=== PATIENT | male | born 1980 | race Caucasian/White ===

== ENCOUNTER 2018-11-25 14:27 | Inpatient (IN) | payer SELFPAY ==
[~2018-11-25] VITALS: Ht 182.9 cm; Wt 94.3 kg
[2018-11-25 15:42] VITALS: BP 147/50; BMI 28.2
[2018-11-25 16:44] LABS: % SATURATION 1 % (15-55); IRON 8 ug/dl (35-150); TOTAL IRON BIND CAPACITY 604 ug/dl (260-445)
[2018-11-25 16:45] LABS: ALBUMIN 3.6 g/dL (3.4-5.0); ALKALINE PHOSPHATASE 81 U/L (46-116); ALT (SGPT) 17 U/L (10-68); BILIRUBIN - TOTAL 0.32 mg/dL (0.2-1.3); CALC OSMOLALITY 279 mosm/kg (275-300); CALCIUM 8.2 mg/dL (8.5-10.1); CARBON DIOXIDE 25.8 mmol/L (21.0-32.0); CHLORIDE - SERUM 104 mmol/L (98-107); GLUCOSE 129 mg/dL (74-106); POTASSIUM - SERUM 3.4 mmol/L (3.5-5.1); PROTEIN - SERUM 7.4 g/dL (6.4-8.2); SODIUM 140 mmol/L (136-145); UREA NITROGEN 11 mg/dL (7-18); eGFR NON AFRICAN AMERICAN 89 mL/min (90-120)
[2018-11-25 16:48] LABS: UNSAT IRON BIND CAPACITY 596 ug/dl (150-375)
[2018-11-25 17:02] LABS: FERRITIN 2 ng/mL (3-244)
[2018-11-25 19:32] LABS: APPEARANCE CLEAR (CLEAR); BILIRUBIN NEGATIVE (NEGATIVE); COLOR YELLOW (YELLOW); GLUCOSE NEGATIVE (NEGATIVE); KETONE NEGATIVE (NEGATIVE); NITRITE NEGATIVE (NEGATIVE); PROTEIN NEGATIVE (NEGATIVE); UROBILINOGEN NORMAL (NORMAL)
[2018-11-25 20:00] VITALS: BP 119/47
[2018-11-25 23:51] LABS: HEMATOCRIT 22.1 % (42.0-54.0)
[2018-11-25 23:53] LABS: HEMOGLOBIN 6.3 g/dL (13.5-17.5)
[2018-11-26] VITALS: BP 114/69
[2018-11-26 04:00] VITALS: BP 119/64
[2018-11-26 07:22] LABS: FOLATE (FOLIC ACID) - SERUM 17.4 ng/mL (>3.0)
[2018-11-26 08:17] LABS: CALC OSMOLALITY 282 mosm/kg (275-300); CARBON DIOXIDE 26.6 mmol/L (21.0-32.0); CHLORIDE - SERUM 108 mmol/L (98-107); CREATININE - SERUM 1.1 mg/dL (0.6-1.3); GLUCOSE 110 mg/dL (74-106); POTASSIUM - SERUM 3.9 mmol/L (3.5-5.1); SODIUM 142 mmol/L (136-145); UREA NITROGEN 11 mg/dL (7-18); eGFR NON AFRICAN AMERICAN 79 mL/min (90-120)
[2018-11-26 08:24] LABS: BASOPHILS 1.2 % (0-2); EOSINOPHILS 2.2 % (0-7); HEMATOCRIT 25.4 % (42.0-54.0); IMMATURE GRANULOCYTES 0.5 % (0-5); LYMPHOCYTES 24.1 % (15-50); MCHC 29.1 g/dL (31.0-37.0); MEAN PLATELET VOLUME 9.7 fL (7.4-10.4); MONOCYTES 12.4 % (2-11); NEUTROPHILS 59.6 % (40-80); PLATELET COUNT 340 10x3/uL (130-400); RDW 23.2 % (11.5-14.5); WBC 8.1 10x3/uL (4.8-10.8)
[2018-11-26 08:25] LABS: RBC 3.96 10x6/uL (4.20-6.10)
[2018-11-26 08:27] LABS: HEMOGLOBIN 7.4 g/dL (13.5-17.5); MCH 18.7 pg (26.0-34.0); MCV 64.1 fL (80.0-100.0)
[2018-11-26 08:58] VITALS: Ht 182.9 cm; Wt 94.3 kg
[2018-11-26 09:21] VITALS: BP 128/63
[2018-11-26 11:35] VITALS: BP 128/71
[2018-11-26 12:20] LABS: EOSINOPHILS 1.7 % (0-7); HEMATOCRIT 28.1 % (42.0-54.0); HEMOGLOBIN 8.4 g/dL (13.5-17.5); IMMATURE GRANULOCYTES 0.4 % (0-5); MCHC 29.9 g/dL (31.0-37.0); MEAN PLATELET VOLUME 9.5 fL (7.4-10.4); MONOCYTES 9.5 % (2-11); NEUTROPHILS 62.4 % (40-80); PLATELET COUNT 340 10x3/uL (130-400); RBC 4.26 10x6/uL (4.20-6.10); RDW 24.9 % (11.5-14.5); WBC 7.7 10x3/uL (4.8-10.8)
[2018-11-26 12:21] LABS: MCH 19.7 pg (26.0-34.0)
[2018-11-26 15:53] VITALS: BP 144/78
[2018-11-26 20:11] LABS: HEMATOCRIT 28.6 % (42.0-54.0); HEMOGLOBIN 8.7 g/dL (13.5-17.5)
[2018-11-26 20:46] VITALS: BP 123/66
[2018-11-27 00:35] VITALS: BP 129/74
[2018-11-27 05:08] VITALS: BP 126/62
[2018-11-27 06:33] LABS: EOSINOPHILS 4.9 % (0-7); HEMATOCRIT 29.1 % (42.0-54.0); HEMOGLOBIN 8.5 g/dL (13.5-17.5); IMMATURE GRANULOCYTES 0.4 % (0-5); MCHC 29.2 g/dL (31.0-37.0); MCV 66.9 fL (80.0-100.0); MEAN PLATELET VOLUME 9.7 fL (7.4-10.4); MONOCYTES 10.3 % (2-11); NEUTROPHILS 51.4 % (40-80); PLATELET COUNT 344 10x3/uL (130-400); RBC 4.35 10x6/uL (4.20-6.10)
[2018-11-27 06:37] LABS: MCH 19.5 pg (26.0-34.0)
[2018-11-27 06:38] LABS: CALC OSMOLALITY 279 mosm/kg (275-300); CALCIUM 8.4 mg/dL (8.5-10.1); CARBON DIOXIDE 25.5 mmol/L (21.0-32.0); CHLORIDE - SERUM 107 mmol/L (98-107); GLUCOSE 102 mg/dL (74-106); POTASSIUM - SERUM 4.3 mmol/L (3.5-5.1); SODIUM 141 mmol/L (136-145); UREA NITROGEN 10 mg/dL (7-18); eGFR NON AFRICAN AMERICAN 89 mL/min (90-120)
[2018-11-27 06:52] LABS: INR 1.24 (0.85-1.17); PROTIME 15.1 SECONDS (11.6-15.0)
[2018-11-27 08:11] VITALS: BP 126/82
[2018-11-27 12:09] VITALS: BP 113/61
[2018-11-27 14:00] VITALS: BP 123/75
[2018-11-27 14:22] LABS: HEMATOCRIT 28.5 % (42.0-54.0); HEMOGLOBIN 8.4 g/dL (13.5-17.5)
[2018-11-27 20:47] VITALS: BP 127/78
[2018-11-27 22:49] LABS: HEMATOCRIT 28.1 % (42.0-54.0); HEMOGLOBIN 8.2 g/dL (13.5-17.5)
[2018-11-28 00:52] VITALS: BP 125/78
[2018-11-28 05:08] VITALS: BP 120/72
[2018-11-28 07:03] LABS: CALC OSMOLALITY 281 mosm/kg (275-300); CALCIUM 8.6 mg/dL (8.5-10.1); CARBON DIOXIDE 25.9 mmol/L (21.0-32.0); CHLORIDE - SERUM 106 mmol/L (98-107); GLUCOSE 98 mg/dL (74-106); POTASSIUM - SERUM 4.1 mmol/L (3.5-5.1); SODIUM 142 mmol/L (136-145); UREA NITROGEN 11 mg/dL (7-18); eGFR NON AFRICAN AMERICAN 89 mL/min (90-120)
[2018-11-28 07:07] LABS: BASOPHILS 0.7 % (0-2); EOSINOPHILS 4.7 % (0-7); HEMATOCRIT 29.2 % (42.0-54.0); HEMOGLOBIN 8.7 g/dL (13.5-17.5); IMMATURE GRANULOCYTES 0.4 % (0-5); MCHC 29.8 g/dL (31.0-37.0); MCV 66.7 fL (80.0-100.0); MEAN PLATELET VOLUME 10.1 fL (7.4-10.4); MONOCYTES 9.9 % (2-11); NEUTROPHILS 55.3 % (40-80); PLATELET COUNT 346 10x3/uL (130-400); RBC 4.38 10x6/uL (4.20-6.10); RDW 26.2 % (11.5-14.5); WBC 7.2 10x3/uL (4.8-10.8)
[2018-11-28 07:10] LABS: MCH 19.9 pg (26.0-34.0)
[2018-11-28] MEDS ORDERED: PROTONIX PO (10:22)
== END 2018-11-28 11:26 | disposition home or self-care (01) | DRG 394 ==
LOC: D.M3 14:27
PROVIDERS: Internal Medicine Gastroenterology; ADMIT Legal Medicine; ATTEND Legal Medicine
PROC: 0DB68ZX Excision of Stomach, Via Natural or Artificial Opening Endoscopic, Diagnostic (ICD-10-PCS; 2018-11-27)
PROC: 0DB58ZX Excision of Esophagus, Via Natural or Artificial Opening Endoscopic, Diagnostic (ICD-10-PCS; 2018-11-27)
PROC: 0DB98ZX Excision of Duodenum, Via Natural or Artificial Opening Endoscopic, Diagnostic (ICD-10-PCS; principal; 2018-11-27 06:58)
PROC: 0DBN8ZX Excision of Sigmoid Colon, Via Natural or Artificial Opening Endoscopic, Diagnostic (ICD-10-PCS; 2018-11-28)
DX: K31.7 Polyp of stomach and duodenum (principal); K92.2 Gastrointestinal hemorrhage, unspecified; D50.9 Iron deficiency anemia, unspecified; K20.9 Esophagitis, unspecified; K29.70 Gastritis, unspecified, without bleeding; K29.80 Duodenitis without bleeding; K64.8 Other hemorrhoids; K63.9 Disease of intestine, unspecified

== ENCOUNTER → 2018-12-02 20:19 | Outpatient (CLI) | payer SELFPAY ==
[2018-11-26 08:58] VITALS: BMI 28.2
[~2018-12-02 20:19] MED LIST: PROTONIX PO
[2018-12-02 20:43] LABS: BASOPHILS 0.7 % (0-2); EOSINOPHILS 1.9 % (0-7); IMMATURE GRANULOCYTES 0.1 % (0-5); LYMPHOCYTES 20.7 % (15-50); MCV 68.7 fL (80.0-100.0); MONOCYTES 7.8 % (2-11); NEUTROPHILS 68.8 % (40-80); PLATELET COUNT 324 10x3/uL (130-400); RBC 4.51 10x6/uL (4.20-6.10); RDW 27.3 % (11.5-14.5); WBC 8.1 10x3/uL (4.8-10.8)
== END | disposition home or self-care (01) ==
LOC: D.LABREF 20:19
DX: K92.2 Gastrointestinal hemorrhage, unspecified (principal); D64.89 Other specified anemias

== ENCOUNTER 2018-12-09 15:10 | Inpatient (IN) | payer SELFPAY ==
[~2018-12-09] VITALS: Ht 182.9 cm; Wt 93.9 kg
[2018-12-15 13:19] LABS: EOSINOPHILS 2.5 % (0-7); HEMATOCRIT 29.2 % (42.0-54.0); HEMOGLOBIN 8.5 g/dL (13.5-17.5); IMMATURE GRANULOCYTES 0.2 % (0-5); LYMPHOCYTES 36.9 % (15-50); MCHC 29.1 g/dL (31.0-37.0); MCV 68.1 fL (80.0-100.0); MEAN PLATELET VOLUME 9.5 fL (7.4-10.4); NEUTROPHILS 50.4 % (40-80); RBC 4.29 10x6/uL (4.20-6.10); RDW 25.2 % (11.5-14.5)
[2018-12-15 13:20] LABS: MCH 19.8 pg (26.0-34.0); PLATELET COUNT 454 10x3/uL (130-400)
[2018-12-15 13:24] LABS: CALC OSMOLALITY 278 mosm/kg (275-300); CALCIUM 8.5 mg/dL (8.5-10.1); CARBON DIOXIDE 24.4 mmol/L (21.0-32.0); CHLORIDE - SERUM 106 mmol/L (98-107); GLUCOSE 96 mg/dL (74-106); POTASSIUM - SERUM 4.5 mmol/L (3.5-5.1); SODIUM 141 mmol/L (136-145); UREA NITROGEN 8 mg/dL (7-18); eGFR NON AFRICAN AMERICAN 89 mL/min (90-120)
[2018-12-15 13:28] LABS: APTT 25.2 SECONDS (22.8-39.4); INR 1.12 (0.85-1.17); PROTIME 13.9 SECONDS (11.6-15.0)
[2018-12-16 08:51] VITALS: BP 119/70; BMI 28.1
[2018-12-16 12:48] VITALS: BP 123/64
--- NOTE | 2018-12-16 13:00 | NUR ---
TO ROOM 2219 FROM PACU VIA BED. PT IS AWAKE AND WITHOUT DISTRESS.DRESSING TO LOWER MID ABD CLEAN,DRY AND INTACT. LAP SITES X2 TO RLQ OF ABD CLEAN,DRY AND INTACT.SCD'S IN PLACE. FAMILY AT BEDSIDE.ORIENTATION TO ROOM.CALL LIGHT IN REACH
[2018-12-16 13:06] VITALS: BP 123/64; BMI 28.1
--- NOTE | 2018-12-16 19:22 | NUR ---
REMAINS WITHOUT CHANGE.CONT PLAN OF CARE
--- NOTE | 2018-12-16 20:00 | NUR ---
ASSESSMENT PER FLOWSHEET. NPO EXCEPT FOR ICE CHIPS. IV PATENT LEFT ARM OF NS AT 125CC'S/HR. PYROMETER OPERATOR OF DILAUDID IN USE WITH SETTINGS AT 0.2MG Q10MIN W/4MG Q4H L/O. GOOD PAIN CONTROL NOTED.SCOTT TO BEDSIDE DRAINAGE WITH YELLOW URINE NOTED.
[2018-12-16 20:41] VITALS: BP 123/66
--- NOTE | 2018-12-16 21:00 | NUR ---
LAP SITE INCISION TO ABDOMEN C/D/I. SCD'S ON. SR UP X2 CALL LIGHT WITHIN REACH.
[2018-12-17 00:57] VITALS: BP 118/60
[2018-12-17 05:54] VITALS: BP 113/56
[2018-12-17 06:09] LABS: BASOPHILS 0.3 % (0-2); EOSINOPHILS 0.1 % (0-7); HEMATOCRIT 25.7 % (42.0-54.0); IMMATURE GRANULOCYTES 0.2 % (0-5); LYMPHOCYTES 13.8 % (15-50); MCHC 29.2 g/dL (31.0-37.0); MCV 67.8 fL (80.0-100.0); MEAN PLATELET VOLUME 9.2 fL (7.4-10.4); MONOCYTES 8.4 % (2-11); NEUTROPHILS 77.2 % (40-80); PLATELET COUNT 415 10x3/uL (130-400); RBC 3.79 10x6/uL (4.20-6.10); RDW 24.8 % (11.5-14.5)
[2018-12-17 06:27] LABS: MCH 19.8 pg (26.0-34.0); WBC 10.5 10x3/uL (4.8-10.8)
[2018-12-17 06:28] LABS: HEMOGLOBIN 7.5 g/dL (13.5-17.5)
[2018-12-17 06:32] LABS: CALC OSMOLALITY 272 mosm/kg (275-300); CALCIUM 8.3 mg/dL (8.5-10.1); CARBON DIOXIDE 23.2 mmol/L (21.0-32.0); CHLORIDE - SERUM 104 mmol/L (98-107); CREATININE - SERUM 0.9 mg/dL (0.6-1.3); GLUCOSE 104 mg/dL (74-106); SODIUM 137 mmol/L (136-145); eGFR NON AFRICAN AMERICAN > 90 mL/min (90-120)
[2018-12-17 06:42] LABS: UREA NITROGEN 11 mg/dL (7-18)
--- NOTE | 2018-12-17 07:52 | NUR ---
PT RESTING IN BED WATCHING TV. NO ACUTE DISTRESS NOTED. PT REPORTS PAIN 3/10 AT THIS TIME TO INCISION TO ABDOMEN. DILAUDID TELERADIOLOGIST IN PLACE AND UTILIZING. IV TO LEFT FOREARM WITH NS @ 125ML/HR INFUSING VIA PUMP. SITE WITHOUT REDNESS OR EDEMA. DRESSINGS C/D/I TO LOWER MIDLINE ABDOMEN AND RLQ LAP SITES. DENIES FURTHER NEEDS AT THIS TIME. CL WITHIN REACH. ENCOURAGED TO CALL WITH NEEDS. CONTINUE POC
[2018-12-17 08:40] VITALS: BP 123/69
--- NOTE | 2018-12-17 09:30 | NUR ---
MD PRESENT, ORDERS RECIEVED TO D/C SCOTT CATH. 10ML SALINE REMOVED FROM BULB OF SCOTT CATH. CATH DISCONTINUED, PT VOICED MINIMAL DISCOMFORT.
[2018-12-17 12:03] VITALS: BP 136/74
[2018-12-17 13:25] VITALS: Ht 182.9 cm; Wt 93.9 kg
[2018-12-17 17:29] VITALS: BP 124/67
[2018-12-17 20:00] VITALS: BP 165/60
--- NOTE | 2018-12-17 20:00 | NUR ---
ASSESSSMENT PER FLOWSHEET. IV PATENT LEFT FOREARM NS AT 125CC'S/HR SITE CLEAR. ROBOTICS TESTING TECHNICIAN OF DILAUDID IN USE WITH SETTINGS AT 0.2MG Q10MIN W/4MG Q4H L/O. DRSG TO ABD. C/D/I. VOIDS IN BATHROOM. SCD'S ON TAKING ICE CHIPS PO.
--- NOTE | 2018-12-17 22:00 | NUR ---
MEDS GIVEN PER MAR. DENIES NEEDS TALKING ON PHONE AT THIS TIME.
[2018-12-18 00:30] VITALS: BP 128/71
--- NOTE | 2018-12-18 01:13 | NUR ---
EYES CLOSED RESPIRATIONS WITH EASE AND UNLABORED. SR UP X2 CALL LIGHT WITHIN REACH.
--- NOTE | 2018-12-18 04:00 | NUR ---
ROXANE DUMONT PER OCT. UP AD TAMIKO TO BR VOIDS
[2018-12-18 04:30] VITALS: BP 147/81
[2018-12-18 06:11] LABS: BASOPHILS 0.5 % (0-2); EOSINOPHILS 1.2 % (0-7); HEMATOCRIT 26.1 % (42.0-54.0); HEMOGLOBIN 7.6 g/dL (13.5-17.5); IMMATURE GRANULOCYTES 0.2 % (0-5); LYMPHOCYTES 20.4 % (15-50); MCH 20.1 pg (26.0-34.0); MCHC 29.1 g/dL (31.0-37.0); MEAN PLATELET VOLUME 9.1 fL (7.4-10.4); MONOCYTES 10.7 % (2-11); PLATELET COUNT 377 10x3/uL (130-400); RBC 3.78 10x6/uL (4.20-6.10); RDW 24.7 % (11.5-14.5); WBC 8.4 10x3/uL (4.8-10.8)
[2018-12-18 06:29] LABS: CALC OSMOLALITY 276 mosm/kg (275-300); CALCIUM 8.1 mg/dL (8.5-10.1); CARBON DIOXIDE 22.9 mmol/L (21.0-32.0); CHLORIDE - SERUM 106 mmol/L (98-107); CREATININE - SERUM 0.8 mg/dL (0.6-1.3); GLUCOSE 85 mg/dL (74-106); POTASSIUM - SERUM 3.8 mmol/L (3.5-5.1); SODIUM 140 mmol/L (136-145); UREA NITROGEN 10 mg/dL (7-18); eGFR NON AFRICAN AMERICAN > 90 mL/min (90-120)
[2018-12-18 09:14] VITALS: BP 126/74
--- NOTE | 2018-12-18 11:25 | NUR ---
MORNING ASSESSMENT COMPLETE. SEE ASSESSMENT FLOWSHEET FOR FURTHER DETAILS. PT LYING IN BED AAO X4 TO PERSON, PLACE, TIME, AND SITUATION. TOOK A SHOWER. REDRESSED INCISION WITH ABD PAD. INCISION C/D AND GISELLA INTACT. DENIES FURTHER NEEDS AT THIS TIME. CL IN REACH. SIDE RAILS UP X3 FOR PT SAFETY. BED IN LWOEST POSITION.
--- NOTE | 2018-12-18 14:34 | NUR ---
NUTRITION F/U DIET ADVANCED TO CLEAR LIQUID. PT REPORTS TOLERATING. WILL MONITOR DIET ADVANCEMENT, PO INTAKE. RD FOLLOWING
--- NOTE | 2018-12-18 15:58 | MORECARE ---
CASE MANAGEMENT DISCHARGE SUMMARY PATIENT: EDUIN MACHUCA UNIT: [id number] ADM DATE: 12/16/18 AGE: 38 : 80 SEX: M ROOM/BED: D.2219 AUTHOR: ZULEYMA,DOC PHYSICIAN: REFERRING PHYSICIAN: LUKE GAYLE MD DATE OF SERVICE: 12/18/18 Discharge Plan Patient Name: EDUIN MACHUCA Facility: [facility]:[place] : 1980 Planned Disposition: Home Anticipated Discharge Date: Discharge Date: Expected LOS: Initial Reviewer: [email or web address] Initial Review Date: 12/16/2018 Generated: 12/18/18 4:58 pm Comments DCP- Discharge Planning Updated by [email or web address]: Kathleen Fermin on 12/18/18 2:[address] Patient Name: EDUIN MACHUCA Admission Status: Urgent Accout number: [id number] Admission Date: 12-16-2018 : 1980 Admission Diagnosis: Attending: LUKE GAYLE Current LOS: 2 Anticipated DC Date: Planned Disposition: Home Primary Insurance: UNINSURED DISCOUNT PLAN Discharge Planning Comments: CM met with patient to complete initial dc planning assessment. CM educated patient on the CM role and verbal consent given by patient to complete assessment. Patient lives at home where he is independent with his care. At discharge patient plans to return home and feels this is a safe discharge. His son will be his carrier driver home. CM discussed availability of home health, rehab services, and medical equipment. Patient denied known discharge needs at this time. CM will continue to follow and will assist as needed with dc plans/needs. Staple Cutter: Kathleen Fermin DCPIA - Discharge Planning Initial Assessment Updated by [email or web address]: Kathleen Fermin on 12/18/18 3:52 pm * Is the patient Alert and Oriented? Yes * How many steps to enter\exit or inside your home? * PCP BHARANY * [facility]acy [facility] * Preadmission Environment Home with Family * ADLs Independent * Equipment None * List name and contact numbers for known caregivers / representatives who currently or will assist patient after discharge: DOT (MOTHER) [phone] * Verbal permission to speak to the caregivers and representatives has been obtained from the patient. N/A * Community resources currently utilized None * Additional services required to return to the preadmission environment? No * Can the patient safely return to the preadmission environment? Yes * Has this patient been hospitalized within the prior 30 days at any hospital? No Patient Name: EDUIN MACHUCA Page 23319 at 1558 All edits/amendments must be made on the electronic document DICTATION DATE: 12/18/181557 NEONATOLOGIST: MAO 12/18/181557 RPT#: [id number] DC DATE: STATUS: ADM IN [facility] [address] [place] [address] END OF REPORT
--- NOTE | 2018-12-18 16:09 | OP ---
PATIENT NAME: EDUIN MACHUCA MEDICAL RECORD: [id number] :[birth year] LOCATION:D.MS [address] ADMISSION DATE:12/16/18 SURGEON: BRADEN GAYLE MD DATE OF OPERATION: 12/16/2018 PREOPERATIVE DIAGNOSES: 1. Sigmoid colon mass. 2. GERD. POSTOPERATIVE DIAGNOSES: 1. Sigmoid colon mass. 2. GERD. PROCEDURE: Hand-assisted laparoscopic sigmoid colectomy. SURGEON: Braden Gayle MD REPORT OF PROCEDURE: The patient's abdomen was prepped and draped in sterile fashion. A suprapubic incision was made in the midline. Electrocautery was used to dissect through the subcutaneous tissues and fascia until we bluntly entered the abdominal cavity. A GelPort was then inserted with a 5-mm trocar within it. After insufflation was obtained, a 5-mm trocar was placed in the right lateral abdomen and a 12-mm trocar was placed just anterior to the right anterior superior iliac crest. The patient had a large palpable mass in the sigmoid colon concerning for malignancy, did not appear to be attached to any surrounding structures. A window was made in the mesorectum at the proximal rectum and the proximal rectum was transected with a 60 blue load Endo-ROBERT stapler. The mesentery was then taken down and we freed up the attachments of the colon from its inferior ridge in the lateral margins. Once this was done, we fired a 70 blue load ROBERT stapler over the mesentery and then eviscerated the sigmoid colon through the wound protector. The mesentery was taken down with sequential clamp and tie technique with 3-0 silks. We then transected the proximal aspect of the sigmoid colon and sent the sigmoid colon off for permanent specimen. The distal end of the colon was prepared with a 2-0 Prolene as a pursestring and a 33 EEA anvil was inserted. The pursestring was tied down tightly around this and this was rested back into the abdominal cavity. The multiple anal dilators were inserted followed by the 33 EEA stapler. An end-to-end anastomosis was performed under direct visualization. At the conclusion of this, there were 2 complete rings of tissue present in the stapler. The staple line was then tested under water by instilling air through the rectum and there was no sign of any leakage. I then oversewed the anterior aspect of the staple line using Lemberted 3-0 silks. At the conclusion of the case, there was one area of bleeding down in the pelvis. This was tied off with a 3-0 silk tie and discontinued any bleeding. At this point, we irrigated the abdomen thoroughly with normal saline. At conclusion of the case, we saw no evidence of any bleeding. We inspected the patient's liver and abdominal wall and saw no evidence of carcinomatosis or metastatic disease. The midline fascia was then closed with running #1 loop PDS times 2. The 12-mm trocar site was closed with a single interrupted 0 Vicryl. The wounds were then irrigated out with normal saline. The midline tissues were reapproximated with interrupted 3-0 Vicryl and all the skin incisions were closed with lake. COMPLICATIONS: None. CONDITION: Stable. OPERATIVE REPORT [id number] EDUIN MACHUCA ANESTHESIA: General endotracheal. BLOOD LOSS: 50 mL. TRANSINT:[id number] Voice Confirmation ID: [id number] DOCUMENT ID: [id number] BRADEN GAYLE MD at 1609 CC: MARKEL DAVIS MD and NADEEM ROSALES [id number] DICTATION DATE: 12/16/18 1137 WAREHOUSE PROCESSOR: 12/16/18 1219 ADM IN [facility] [address] [place] [address]
[2018-12-18 16:33] VITALS: BP 132/63
[2018-12-18 20:03] VITALS: BP 147/84
[2018-12-19 00:23] VITALS: BP 125/71
--- NOTE | 2018-12-19 01:16 | NUR ---
RESTING IN BED SLEEPING NO S/S OF DISTRESS CALL LIGHT IN REACH.
[2018-12-19 05:18] LABS: BASOPHILS 0.7 % (0-2); EOSINOPHILS 3.5 % (0-7); HEMATOCRIT 27.3 % (42.0-54.0); HEMOGLOBIN 7.8 g/dL (13.5-17.5); IMMATURE GRANULOCYTES 0.1 % (0-5); LYMPHOCYTES 28.9 % (15-50); MCHC 28.6 g/dL (31.0-37.0); MCV 68.6 fL (80.0-100.0); MEAN PLATELET VOLUME 9.5 fL (7.4-10.4); MONOCYTES 11.5 % (2-11); NEUTROPHILS 55.3 % (40-80); PLATELET COUNT 401 10x3/uL (130-400); RBC 3.98 10x6/uL (4.20-6.10); WBC 6.8 10x3/uL (4.8-10.8)
[2018-12-19 05:19] VITALS: BP 139/71
[2018-12-19 05:21] LABS: MCH 19.6 pg (26.0-34.0)
[2018-12-19 05:25] LABS: CALC OSMOLALITY 278 mosm/kg (275-300); CALCIUM 8.4 mg/dL (8.5-10.1); CARBON DIOXIDE 24.3 mmol/L (21.0-32.0); CHLORIDE - SERUM 105 mmol/L (98-107); CREATININE - SERUM 0.9 mg/dL (0.6-1.3); GLUCOSE 74 mg/dL (74-106); POTASSIUM - SERUM 3.5 mmol/L (3.5-5.1); SODIUM 141 mmol/L (136-145); UREA NITROGEN 10 mg/dL (7-18); eGFR NON AFRICAN AMERICAN > 90 mL/min (90-120)
[2018-12-19 08:04] VITALS: BP 127/76
--- NOTE | 2018-12-19 10:39 | NUR ---
ALERT AND ORIENTED X3 WITH BS NOTED X4. UP AB. TAMIKO AND DENIES ANY PAIN OR DISCOMFORT AT THIS TIME. PT REFUSED SCD DUE TO MOBILITY. S/L TO LT. FOREARM WITHOUT ANY S/S OF INFECTION. ENCOURAGED TO USE CALL LIGHT FOR ASSSIST.
[2018-12-19] MEDS ORDERED: NORCO-10 PO (12:21)
[2018-12-19 13:09] VITALS: BP 128/58
--- NOTE | 2018-12-19 14:51 | NUR ---
PT VERBALZED UNDERSTANDING OF DISCHARGE INSTRUCTIONS WITH IV DISCONTINUED. LEFT UNDER THE CARE OF SON.STABLE AT TIME OF DEPARTURE.
--- NOTE | 2018-12-19 15:09 | MORECARE ---
CASE MANAGEMENT DISCHARGE SUMMARY PATIENT: EDUIN MACHUCA UNIT: [id number] ADM DATE: 12/16/18 AGE: 38 : 80 SEX: M ROOM/BED: D.2219 AUTHOR: ZULEYMADOC PHYSICIAN: REFERRING PHYSICIAN: LUKE GAYLE MD DATE OF SERVICE: 12/19/18 Discharge Plan Patient Name: EDUIN MACHUCA Facility: [facility]:[place] : 1980 Planned Disposition: Home Anticipated Discharge Date: Discharge Date: 12/19/2018 Expected LOS: 0 Initial Reviewer: [email or web address] Initial Review Date: 12/16/2018 Generated: 12/19/18 4:09 pm Comments DCP- Discharge Planning Updated by [email or web address]: Kathleen Fermin on 12/18/18 2:[address] Patient Name: EDUIN MACHUCA Admission Status: Urgent Accout number: [id number] Admission Date: 12-16-2018 : 1980 Admission Diagnosis: Attending: LUKE GAYLE Current LOS: 2 Anticipated DC Date: Planned Disposition: Home Primary Insurance: UNINSURED DISCOUNT PLAN Discharge Planning Comments: CM met with patient to complete initial dc planning assessment. CM educated patient on the CM role and verbal consent given by patient to complete assessment. Patient lives at home where he is independent with his care. At discharge patient plans to return home and feels this is a safe discharge. His son will be his transfer driver home. CM discussed availability of home health, rehab services, and medical equipment. Patient denied known discharge needs at this time. CM will continue to follow and will assist as needed with dc plans/needs. Underwriting Specialist: Kathleen Fermin DCPIA - Discharge Planning Initial Assessment Updated by [email or web address]: Kathleen Fermin on 12/18/18 3:52 pm * Is the patient Alert and Oriented? Yes * How many steps to enter\exit or inside your home? * PCP BHNATHANAELY * [facility] * Preadmission Environment Home with Family * ADLs Independent * Equipment None * List name and contact numbers for known caregivers / representatives who currently or will assist patient after discharge: DOT (MOTHER) [phone] * Verbal permission to speak to the caregivers and representatives has been obtained from the patient. N/A * Community resources currently utilized None * Additional services required to return to the preadmission environment? No * Can the patient safely return to the preadmission environment? Yes * Has this patient been hospitalized within the prior 30 days at any hospital? No Last DP export: 12/18/18 2:58 pm Patient Name: EDUIN MACHUCA Page 15093 at 1509 All edits/amendments must be made on the electronic document DICTATION DATE: 12/19/18 1509 POLISHER EYEGLASS FRAMES: MAO 12/19/18 1509 RPT#: [id number] DC DATE:12/19/18 STATUS: DIS IN [facility] [address] [place] [address] END OF REPORT
== END 2018-12-19 14:54 | disposition home or self-care (01) | DRG 331 ==
LOC: D.MS 12-16 08:05 → D.SDCHOLD 12-16 08:05 → D.MS 12-16 12:17
PROVIDERS: Anesthesiology; ADMIT Surgery; ATTEND Surgery
PROC: 0DTN0ZZ Resection of Sigmoid Colon, Open Approach (ICD-10-PCS; principal; 2018-12-16 09:45)
DX: K63.9 Disease of intestine, unspecified (principal); K21.9 Gastro-esophageal reflux disease without esophagitis; D64.9 Anemia, unspecified

== ENCOUNTER → 2018-12-25 11:41 | Outpatient (CLI) | payer SELFPAY ==
[2018-12-17 13:25] VITALS: BMI 28.0
[~2018-12-25 11:41] MED LIST changes: +NORCO-10 PO
== END | disposition home or self-care (01) ==
LOC: D.CT 11:41
PROVIDERS: ATTEND Legal Medicine
DX: C18.7 Malignant neoplasm of sigmoid colon (principal)

== ENCOUNTER 2019-01-01 05:45 | Day surgery (SDC) | payer SELFPAY | END 2019-01-01 11:04 | disposition home or self-care (01) | LOC: D.OPS 05:45 | DX: C18.7 Malignant neoplasm of sigmoid colon (principal); D50.9 Iron deficiency anemia, unspecified; Z01.812 Encounter for preprocedural laboratory examination ==

== ENCOUNTER → 2019-08-27 13:47 | Outpatient (CLI) | payer MEDICAID ==
[2019-01-01 06:32] VITALS: BMI 27.0
[~2019-08-27 13:47] MED LIST changes: +HYDROCODON-ACE1 EA10 PO; +XARELTO20 MG PO
== END | disposition home or self-care (01) ==
LOC: D.US 13:47
PROVIDERS: ATTEND Legal Medicine
DX: R22.31 Localized swelling, mass and lump, right upper limb (principal)

== ENCOUNTER 2019-08-28 12:55 | Inpatient (IN) | payer MEDICAID ==
[~2019-08-28] VITALS: Ht 182.9 cm; Wt 101.4 kg
--- NOTE | ~2019-08-28 | HEMODYNAMI ---
PATIENT:EDUIN MACHUCA MEDICAL RECORD: [id number] : 80 LOCATION:[id number] ADMISSION DATE: 08/28/19 Generatedon:08/29/201912:49 Patient name: EDUIN MACHUCA Patient #: [id number] SS N: : 1980 Date of study: 08/29/2019 Page: Of Hemodynamic Procedure Report Patient Data Patient Demographics Procedure consent was obtained First Name: EDUIN Gender: Male Last Name: SVEN : 1980 [facility] Initial: Antonio Age: 39 year(s) Patient #: [id number] Race: Unknown Additional ID: [id number] Contact details Address: [address] [place] [address] POINT State: [place] City: [place] Zip code: [address] Past Medical History Allergies: No known allergies Admission Admission Data Admission Date: 08/28/2019 Admission Time: 15:29 Room #: 2205 Procedure Procedure Types Cath Procedure Peripheral Cath Diagnostic Procedure Venography Extremity Right Upper Ext. Venagram Procedure Description Procedure Date Procedure Date: 08/29/2019 Procedure Start Time: 11:10 Procedure Staff Name Function Abdoulaye Diallo MD Performing Physician Gianna Constantino RN Nurse MERNA CHAKRABORTY RT Scrub Josafat Roy RT Monitor Procedure Data Cath Procedure Fluoroscopy Diagnostic fluoroscopy Total fluoroscopy Time: time: 23.8 min 23.8 min Diagnostic fluoroscopy Total fluoroscopy dose: 283 dose: 283 mGy mGy Contrast Material Contrast Material Type Amount (ml) Isovue 300 80 Diagnostic catheters Device Type Used For End Catheter Placement Merit Impress KA2 5Fr 65CM catheter ([id number]) Procedure Medications Medication Administration Route Dosage Heparin Flush Bag added to field 2 bags (1000units/500ml NS) Lidocaine 1% added to field 20 Versed I.V. 1 mg Fentanyl I.V. 50 mcg Benadryl I.V. 25 mg Fentanyl I.V. 50 mcg Versed I.V. 1 mg Benadryl I.V. 25 mg Fentanyl I.V. 50 mcg Versed I.V. 1 mg Heparin Bolus I.V. 4000 units Versed I.V. 1 mg Fentanyl I.V. 50 mcg Heparin Bolus I.V. 2000 units Hemodynamics Rest Heart Rate: 72 (bpm) Snapshots Pre Cath Intra NCS Post Cath Vital Signs Time Heart Resp SPO2 etCO2 NIBP (mmHg) Rhythm Pain Sedation Rate (ipm) (%) (mmHg) Status Level (bpm) 11:01:06 71 23 31.7 154/84(109) NSR 0 (11) 10(A) , No pain 11:05:26 77 16 100 33.9 140/86(98) NSR 0 (11) 10(A) , No pain 11:09:40 75 21 99 32.4 127/95(109) NSR 0 (11) 10(A) , No pain 11:14:39 76 16 98 35.4 Measuring NSR 0 (11) 10(A) , No pain 11:14:43 83 16 98 33.2 133/87(107) NSR 0 (11) 10(A) , No pain 11:18:55 74 16 98 38.5 144/83(110) NSR 0 (11) 8(A) , No pain 11:23:13 78 19 98 26.4 140/80(106) NSR 0 (11) 8(A) , No pain 11:27:27 69 15 96 37.7 161/84(103) NSR 0 (11) 8(A) , No pain 11:31:41 69 16 98 37.7 144/85(106) NSR 0 (11) 8(A) , No pain 11:35:57 73 15 99 36.2 138/88(100) NSR 0 (11) 8(A) , No pain 11:40:15 67 15 97 34 137/70(109) NSR 0 (11) 8(A) , No pain 11:44:29 66 14 98 30.9 142/80(106) NSR 0 (11) 8(A) , No pain 11:48:47 63 14 98 37.7 135/77(103) NSR 0 (11) 8(A) , No pain 11:52:59 66 14 99 23.4 135/85(105) NSR 0 (11) 8(A) , No pain 11:57:11 63 15 99 35.4 132/86(98) NSR 0 (11) 8(A) , No pain 12:01:21 63 14 99 34.7 140/90(107) NSR 0 (11) 8(A) , No pain 12:05:34 65 15 100 36.9 140/89(100) NSR 0 (11) 8(A) , No pain 12:09:51 70 18 99 33.2 147/81(102) NSR 0 (11) 8(A) , No pain 12:14:07 64 14 97 38.5 142/87(105) NSR 0 (11) 8(A) , No pain 12:18:21 64 15 98 40 140/87(101) NSR 0 (11) 8(A) , No pain 12:22:35 63 16 97 0 129/84(98) NSR 0 (11) 8(A) , No pain 12:26:53 64 15 98 31.7 137/59(73) NSR 0 (11) 8(A) , No pain 12:31:11 66 15 97 30.2 133/73(106) NSR 0 (11) 8(A) , No pain 12:35:21 66 15 100 36.9 150/87(107) NSR 0 (11) 8(A) , No pain 12:39:33 66 15 100 36.2 148/86(111) NSR 0 (11) 8(A) , No pain 12:43:53 67 14 99 36.2 132/77(94) NSR 0 (11) 8(A) , No pain 12:48:11 70 11 100 30.9 118/71(105) NSR 0 (11) 8(A) , No pain Medications Time Medication Route Dose Verified Delivered Reason Notes Effe ctiveness by by 11:13:31 Heparin Flush added 2 Abdoulaye Stanford used for Bag to bags Yoel Diallo procedure (1000units/500ml field MD ARAUJO NS) 11:13:42 Lidocaine 1% added 20ml Abdoulaye Stanford for local to vial Yoel Diallo anesthetic field MD ARAUJO 11:13:55 Versed I.V. 1 mg Abdoulaye Katz for Yoel Constantino RN sedation 11:14:05 Fentanyl I.V. 50 Abdoulaye Gianna for mcg Yoel Dougie RN sedation 11:16:44 Benadryl I.V. 25 mg Abdoulaye Gianna Per Yoel Gouldr RN physician 11:21:33 Fentanyl I.V. 50 Abdoulaye Gianna for mcg Yoel Dougie RN sedation 11:21:42 Versed I.V. 1 mg Abdoulaye Gianna for Yoel Dougie RN sedation 11:26:07 Benadryl I.V. 25 mg Abdoulaye Gianna Per Yoel Dougie RN physician 11:34:43 Fentanyl I.V. 50 Abdoulaye Gianna for mcg Yoel Dougie RN sedation 11:34:50 Versed I.V. 1 mg Abdoulaye Gianna for Yoel Dougie RN sedation 11:36:25 Heparin Bolus I.V. 4000 Abdoulaye Gianna Per units Yoel Gouldr RN physician 12:08:45 Versed I.V. 1 mg Abdoulaye Gianna for Yoel Dougie RN sedation 12:08:53 Fentanyl I.V. 50 Abdoulaye Gianna for mcg Yoel Dougie RN sedation 12:22:10 Heparin Bolus I.V. 2000 Abdoulaye Gianna Per units Yoel Gouldr RN physician Procedure Log Time Note 10:37:59 Josafat Roy RT (R) (CV) sent for patient. Start room use. 10:38:05 Time tracking: Regular hours (M-F 7:00 - 5:00) 10:38:10 Plan of Care:Hemodynamics will remain stable., Cardiac rhythm will remain stable., Comfort level will be maintained., Respiratory function will remain adequate., Patient/ family verbilizes understanding of procedure., Procedure tolerated without complication., Recovers from procedure without complications.. 10:38:23 Patient received from Med/Surg to IR Alert and oriented. Tansferred to table in Supine position. 10:38:26 Signed procedure consent form obtained from patient. 10:38:27 Correct patient and procedure confirmed by team. 10:38:30 Full Disclosure recording started 10:38:35 Use device set IR Diagnostic 10:38:37 Bag Decanter (2002S) opened to sterile field. 10:38:38 Sterile Angiographic Pack opened to sterile field. 10:38:38 Tegaderm 4 x 4 (1626W) opened to sterile field. 10:38:52 - 10:39:05 H&P Date Dictated: 08/29/2019 Within 30 days and on chart.. 10:39:07 Pre-procedure instructions explained to patient. 10:39:07 Pre-op teaching completed and patient verbalized understanding. 10:40:10 Family in waiting room. 10:40:18 Patient NPO since Midnight. 10:40:26 Patient allergic to No known allergies 10:40:32 Is the patient allergic to Iodine/contrast media? No. 10:40:34 Is patient on blood thinner?Yes 10:40:38 ACC The patient was administered the following blood thiners within the last 24 hours: ACCHeparin 10:40:47 Patient diabetic? No. 10:40:48 - 10:40:49 ----Pre-sedation anethsthesia assessment.---- 10:40:52 Previous problem with sedation/anesthesia? No ? 10:40:53 Snore? Yes 10:40:54 Sleep apnea? No 10:40:56 Deviated septum? No 10:40:58 Opens mouth fully? Yes 10:41:00 Sticks out tongue? Yes 10:41:02 Airway obstruction? No ? 10:41:05 Dentures? No ? 10:41:23 IV patent on arrival in left forearm with 0.9% NaCl at [facility]. 10:41:35 Left Arm area was prepped with chlora-prep and draped in sterile fashio n 10:59:49 Vital chart was started 11:00:07 Baseline sample Acquired. 11:08:36 Physician arrived 11:08:37 --------ALL STOP TIME OUT------ 11:08:38 Final Timeout: patient, procedure, and site verified with staff and physician. All members of the team are in agreement. 11:08:47 Right Arm site verified by team. 11:09:08 2) 60-89 Mildly reduced kidney function, and other findings (as for stage 1) point to kidney disease. 11:09:57 Maximum allowable contrast dose (3.7 X eGFR X 0.75)180 ml. 11:10:06 Sedation plan: IV Moderate Sedation Medication:Versed, Fentanyl 11:10:09 Procedure started. 11:10:14 Local anesthetic to right arm with Lidocaine 1% by Abdoulaye Diallo MD.INITIAL ACCESS ONLY 11:12:05 Micropuncture VSI 4FR kit opened to sterile field. 11:12:06 BENTSON 145cm wire ([id number]) opened to sterile field. 11:13:31 Heparin Flush Bag (1000units/500ml NS) 2 bags added to field was administered by Abdoulaye Diallo MD; used for procedure; Verbal order read back and verified. 11:13:42 Lidocaine 1% 20ml vial added to field was administered by Abdoulaye peterson MD; for local anesthetic; Verbal order read back and verified. 11:13:55 Versed 1 mg I.V. was administered by Gianna Constantino RN; for sedation; Verbal order read back and verified. 11:14:05 Fentanyl 50 mcg I.V. was administered by Gianna Constantino RN; for sedation ; Verbal order read back and verified. 11:16:44 Benadryl 25 mg I.V. was administered by Gianna Constantino RN; Per physician ; Verbal order read back and verified. 11:17:22 Sheath 8fr. [place] 10cm opened to sterile field. 11:21:33 Fentanyl 50 mcg I.V. was administered by Gianna Constantino RN; for sedation ; Verbal order read back and verified. 11:21:37 Indigo System Aspiration Catheter 8 opened to sterile field. 11:21:38 Indigo System Pump suctin (IAPS2) opened to sterile field. 11:21:42 Versed 1 mg I.V. was administered by Gianna Constantino RN; for sedation; Verbal order read back and verified. 11:26:07 Benadryl 25 mg I.V. was administered by Gianna Constantino RN; Per physician ; Verbal order read back and verified. 11:34:43 Fentanyl 50 mcg I.V. was administered by Gianna Constantino RN; for sedation ; Verbal order read back and verified. 11:34:50 Versed 1 mg I.V. was administered by Gianna Constantino RN; for sedation; Verbal order read back and verified. 11:36:25 Heparin Bolus 4000 units I.V. was administered by Gianna Constantino RN; Per physician; Verbal order read back and verified. 11:38:[address] Impress KA2 5Fr 65CM catheter ([id number]) was advanced over the wire and used for . 11:42:55 Indigo System Separator 8 opened to sterile field. 11:50:23 ROADRUNNER .035 145 glide wire ([id number]) opened to sterile field. 11:53:57 CHOICE PT Extra Support J 300cm guide wire ([id number]) opened to steril e field. 11:54:59 INFLATOR BasixTOUCH (DQ7852) opened to sterile field. 12:03:40 Ni 180 wire (Q55924) opened to sterile field. 12:08:45 Versed 1 mg I.V. was administered by Gianna Constantino RN; for sedation; Verbal order read back and verified. 12:08:53 Fentanyl 50 mcg I.V. was administered by Gianna Constantino RN; for sedation ; Verbal order read back and verified. 12:12:56 Inflate balloon Inflation number: 1 A ATLAS 12 x 4 x 75CM balloon ([id number]) was prepped and advanced across the Undefined1 , then inflated to 11 [place] for 0:09 (min:sec) . 12:22:10 Heparin Bolus 2000 units I.V. was administered by Gianna Constantino RN; Per physician; Verbal order read back and verified. 12:31:30 Inflate balloon Inflation number: 2 A ATLAS 14 x 4 x 75CM balloon ([id number]) was prepped and advanced across the Undefined1 , then inflated to 10 [place] for 0:05 (min:sec) . 12:35:55 Procedure ended.(Physican Out) 12:38:40 Fluoroscopy time 23.80 minutes. 12:38:45 Fluoroscopy dose: 283 mGy 12:38:45 Flurop Dose total: 283 12:38:48 Sharps counted by scrub and verified by R.N. 12:38:52 Insertion/operative site no bleeding no hematoma. 12:39:14 Post-op/insertion site Right brachial dressed using a 4 x 4 and Tegaderm. 12:39:57 Post procedure instruction explained to patient.Patient verbalizes understanding. 12:39:58 Procedure and supply charges have been captured, reviewed, submitted an d are correct. 12:42:00 Contrast amount:Isovue 300 80ml. 12:48:28 Report given to Med/Surg. 12:48:31 Patient transfered to Med/Surg with Bed. 12:49:02 Vital chart was stopped Intervention Summary Intervention Notes Time ActionType Lesion and Equipment Action# Pressure Duration Attributes Used 12:12:56 Inflate Undefined1 ATLAS 12 1 11 00:09 balloon x 4 x 75CM balloon ([id number]) 12:31:30 Inflate Undefined1 ATLAS 14 2 10 00:05 balloon x 4 x 75CM balloon ([id number]) Device Usage Item Name Manufacture Quantity Catalog Number Hospital Part Current Min imal Lot# / Charge Number Stock Stock Serial# Code Bag Decanter Microtek 1 [id number] 58105 480940 5 () Medical Inc. Sterile Cardinal 1 [id number] 402284 544912 5 Angiographic Health Pack Tegaderm 4 x 3M 1 1626W 049090 783945 051776 5 4 (1626W) Micropuncture VSI VASCULAR 1 7266V 875720 103708 5 VSI 4FR kit SOLUTIONS BENTSON 145cm [facility] 1 Q40928 482473 065227 5 wire (P70838) Sheath 8fr. Terumo 1 TBM800 677004 3865848 5 [place] 10cm Indigo System Penumbra 1 [id number] 985484 849541 237840 1 [id number] Aspiration Catheter 8 Indigo System Penumbra 1 IAPS2 739265 65441 3736355 1 Pump suctin (IAPS2) Merit Impress Merit 1 [id number] 676436 128593 5 KA2 5Fr 65CM Medical catheter ([id number]) Indigo System Penumbra 1 SEP8 788217 855384 313030 1 R08942 Separator 8 ROADRUNNER [facility] 1 A57386 483965 472684 691769 5 0621392 .035 145 glide wire (Y35943) CHOICE PT [place] 1 [id number] 433026 994725 387642 5 [id number] Extra Support Scientific J 300cm guide wire ([id number]) INFLATOR Merit 1 MC1887 974513 772320 902468 5 BasixTOUCH Medical (ZM6471) Ni 180 [employer] 1 N05945 310851 515901 8521326 5 9912245 wire (T73653) ATLAS 12 x 4 Bard 1 PV37020 057639 934622 5 x 75CM balloon ([id number]) ATLAS 14 x 4 Bard 1 HH91618 282101 417065 713117 5 x 75CM balloon (FF49160) Signature Audit [place] Stage Time Signature Unsigned Intra-Procedure 08/29/2019 Josafat 12:48:58 PM [place] RT (R) (CV) [facility] [address] [place] [address]
--- NOTE | 2019-08-28 09:00 | NUR ---
EDEMA 3+ NOTED TO RUE WITH WEAK RADIAL PULSE NOTED WITH REDNESS. NO LIMITED ROM AT THIS TIME.
[~2019-08-28 12:55] MED LIST changes: -XARELTO20 MG PO
[2019-08-28 16:14] VITALS: BP 146/95; Ht 182.9 cm; Wt 101.4 kg
[2019-08-28 16:19] LABS: BASOPHILS 0.3 % (0-2); EOSINOPHILS 1.8 % (0-7); HEMATOCRIT 33.9 % (42.0-54.0); HEMOGLOBIN 10.3 g/dL (13.5-17.5); IMMATURE GRANULOCYTES 0.2 % (0-5); LYMPHOCYTES 30.4 % (15-50); MCH 22.1 pg (26.0-34.0); MCHC 30.4 g/dL (31.0-37.0); MCV 72.7 fL (80.0-100.0); MONOCYTES 5.2 % (2-11); NEUTROPHILS 62.1 % (40-80); RBC 4.66 10x6/uL (4.20-6.10); RDW 18.1 % (11.5-14.5); WBC 6.2 10x3/uL (4.8-10.8)
[2019-08-28 16:20] LABS: PLATELET COUNT 228 10x3/uL (130-400)
[2019-08-28 16:25] LABS: ANION GAP 13.9 mmol/L (8-16); CALCIUM 8.4 mg/dL (8.5-10.1); CREATININE - SERUM 1.3 mg/dL (0.6-1.3); POTASSIUM - SERUM 3.9 mmol/L (3.5-5.1)
--- NOTE | 2019-08-28 16:27 | NUR ---
PATIENT RECEIVED TO ROOM AND STABLE AT THIS TIME AND ORIENTED TO ROOM
[2019-08-28 16:31] LABS: ALBUMIN 3.7 g/dL (3.4-5.0); BILIRUBIN - TOTAL 0.44 mg/dL (0.2-1.3); PROTEIN - SERUM 7.2 g/dL (6.4-8.2)
[2019-08-28 16:38] LABS: APTT 25.3 SECONDS (22.8-39.4); INR 1.12 (0.85-1.17); PROTIME 14.4 SECONDS (11.6-15.0)
--- NOTE | 2019-08-28 19:30 | NUR ---
PT SITTING UP IN BED WITHOUT DISTRESS, AOX4. IV LEFT FA INFUSING HEPARIN @ 13ML/HR. SLIGHT SWELLING TO RIGHT UPPER ARM. DENIES PAIN. ENCOURAGED TO CALL WITH NEEDS. CL IN REACH, WILL CTM
[2019-08-29] VITALS (11 sets, daily range): BP systolic 117–158; BP diastolic 54–92
--- NOTE | 2019-08-29 01:00 | NUR ---
APTT CAME BACK 43.7, INCREASED HEPARIN DRIP 100UNITS/HR PER PROTOCOL WITH SECOND NURSE. HEPARIN INFUSING @ 14ML/HR. WILL CTM
--- NOTE | 2019-08-29 03:59 | NUR ---
PT TAKING DESI HEWITT SHOWER AT THIS TIME, LINENS CHANGED
[2019-08-29 06:42] LABS: HEMATOCRIT 31.7 % (42.0-54.0); HEMOGLOBIN 9.6 g/dL (13.5-17.5); MCH 22.1 pg (26.0-34.0); MCHC 30.3 g/dL (31.0-37.0); MEAN PLATELET VOLUME 9.4 fL (7.4-10.4); RBC 4.34 10x6/uL (4.20-6.10); RDW 18.3 % (11.5-14.5)
[2019-08-29 06:51] LABS: WBC 4.4 10x3/uL (4.8-10.8)
--- NOTE | 2019-08-29 09:00 | NUR ---
ALERT AND ORIENTEDX4 WITH INCREASE ROM TO RT. ARM WITH DECREASED SWELLING AND PAIN NOTED. RAIDAL AND BRACHIAL PULSES NOTED. HEPARIN GTT INFUSING AT PRESCRIBED RATE WITH NO S/S OF ABNORMAL BLEEDING.ENCOURAGED TO USE CALL LIGHT FOR ASSIST.
--- NOTE | 2019-08-29 10:37 | NUR ---
CONSCENT SIGNED FOR PROCEDURE AND VERBALIZED UNDERSTANDING. PATIENT LEFT FOR PROCEDURE AND STABLE AT TIME OF DEPARTURE WITH STAFF.
--- NOTE | 2019-08-29 13:05 | NUR ---
PT RETURNED FROM PROCEDURE WITH DRESSING INTACT TO [facility]. DENIESW ANY PAIN OR DISCOMFORT B/P 152/92 68 18 98.1 POLSE OX 94%. STABLE WITH FAMILY PRESENT.
--- NOTE | 2019-08-29 20:40 | NUR ---
UP AD TAMIKO ON UNIT.NO COMPLAITNS VOICED. RESP EVEN AND UNALBORED.NO DISTESS NOTED. DRESSING INTACT TO TEMO WITHOUT DRAINAGE NOTED.BRUSING NOTED TO UPPER ARM.CL IN REACH
--- NOTE | 2019-08-30 06:48 | NUR ---
I have reviewed this patient and I concur with the Shift Assessment completed by the Licensed Practical Nurse today this shift.
[2019-08-30 07:04] LABS: CALC OSMOLALITY 276 mosm/kg (275-300); CALCIUM 8.2 mg/dL (8.5-10.1); CARBON DIOXIDE 27.1 mmol/L (21.0-32.0); CHLORIDE - SERUM 105 mmol/L (98-107); CREATININE - SERUM 1.1 mg/dL (0.6-1.3); GLUCOSE 106 mg/dL (74-106); POTASSIUM - SERUM 3.8 mmol/L (3.5-5.1); SODIUM 140 mmol/L (136-145); UREA NITROGEN 6 mg/dL (7-18); eGFR NON AFRICAN AMERICAN 79 mL/min (90-120)
[2019-08-30 07:10] LABS: BASOPHILS 0.2 % (0-2); EOSINOPHILS 3.4 % (0-7); HEMATOCRIT 31.5 % (42.0-54.0); HEMOGLOBIN 9.4 g/dL (13.5-17.5); IMMATURE GRANULOCYTES 0.2 % (0-5); LYMPHOCYTES 34.6 % (15-50); MCH 22.1 pg (26.0-34.0); MCHC 29.8 g/dL (31.0-37.0); MCV 74.1 fL (80.0-100.0); MEAN PLATELET VOLUME 9.5 fL (7.4-10.4); MONOCYTES 7.7 % (2-11); NEUTROPHILS 53.9 % (40-80); PLATELET COUNT 231 10x3/uL (130-400); RBC 4.25 10x6/uL (4.20-6.10); RDW 18.3 % (11.5-14.5)
[2019-08-30 07:13] LABS: WBC 6.2 10x3/uL (4.8-10.8)
--- NOTE | 2019-08-30 09:00 | NUR ---
ALERT AND ORIETNED X4. HRRR AND LUNGS CTA. DRESSING INTACT TO RUE WITH BRUISING AND WARMTH NOTED TO SITE. DENIES ANY PAIN OR DISCOMFORT WITH GOOD ROM NOTED. SLIGHT EDEMA LOTED TO RUE.UP ADLIB AND ENCOURAGED TO USE CALL LIGHT FOR ASSSIT.
[2019-08-30 09:21] VITALS: BP 123/63
[2019-08-30] MEDS ORDERED: XARELTO20 MG PO (10:59)
[2019-08-30 12:25] VITALS: BP 129/74
--- NOTE | 2019-08-30 13:22 | NUR ---
IV DISCONTINUED AND VERBALIZED UNDERSTANDING OF DISCHARGE INSTRUCTIONS. DRESSING DRY AND INTACT AND STABLE AT TIME OF DEPARTURE.
--- NOTE | 2019-08-30 18:31 | MORECARE ---
CASE MANAGEMENT DISCHARGE SUMMARY PATIENT: EDUIN MACHUCA UNIT: [id number] ADM DATE: 08/28/19 AGE: 39 : [birth year] SEX: M ROOM/BED: D.2205 AUTHOR: YUE AMOR PHYSICIAN: REFERRING PHYSICIAN: MARKEL DAVIS MD DATE OF SERVICE: 08/30/19 Discharge Plan Patient Name: EDUIN MACHUCA Facility: [facility]:[place] : 1980 Planned Disposition: Home Anticipated Discharge Date: Discharge Date: 08/30/2019 Expected LOS: Initial Reviewer: [email or web address] Initial Review Date: 08/30/2019 Generated: 08/30/19 7:31 pm Patient Name: EDUIN MACHUCA Page 76456 at 1831 All edits/amendments must be made on the electronic document DICTATION DATE: 08/30/191830 CUTTING SUPERVISOR: MAO 08/30/191830 RPT#: [id number] DC DATE:08/30/19 STATUS: DIS IN [facility] [address] [place] [address] END OF REPORT
--- NOTE | 2019-08-30 18:38 | MORECARE ---
CASE MANAGEMENT DISCHARGE SUMMARY PATIENT: EDUIN MACHUCA UNIT: [id number] ADM DATE: 08/28/19 AGE: 39 : 80 SEX: M ROOM/BED: D.2205 AUTHOR: YUE AMOR PHYSICIAN: REFERRING PHYSICIAN: MARKEL DAVIS MD DATE OF SERVICE: 08/30/19 Discharge Plan Patient Name: EDUIN MACHUCA [facility] : 1980 Planned Disposition: Home Anticipated Discharge Date: Discharge Date: 08/30/2019 Expected LOS: Initial Reviewer: [email or web address] Initial Review Date: 08/30/2019 Generated: 08/30/19 7:37 pm DCPIA - Discharge Planning Initial Assessment Updated by [email or web address]: Mily Wilson on 08/30/19 6:31 pm * Is the patient Alert and Oriented? Yes * PCP SUSAN * [facility] * Preadmission Environment Home with Family * ADLs Independent * Equipment None * List name and contact numbers for known caregivers / representatives who currently or will assist patient after discharge: DAVID MAGANA [phone] * Verbal permission to speak to the caregivers and representatives has been obtained from the patient. N/A * Community resources currently utilized None * Additional services required to return to the preadmission environment? No * Can the patient safely return to the preadmission environment? Yes * Has this patient been hospitalized within the prior 30 days at any hospital? No Last DP export: 08/30/19 5:31 p Patient Name: EDUIN MACHUCA Page [id number] at 1838 All edits/amendments must be made on the electronic document DICTATION DATE: 08/30/191836 SUBWAY CONDUCTOR: MAO 08/30/191836 RPT#: [id number] DC DATE:08/30/19 STATUS: DIS IN [facility] [address] [place] [address] END OF REPORT
--- NOTE | 2019-08-30 18:44 | MORECARE ---
CASE MANAGEMENT DISCHARGE SUMMARY PATIENT: EDUIN MACHUCA UNIT: [id number] ADM DATE: 08/28/19 AGE: 39 : 80 SEX: M ROOM/BED: D.2205 AUTHOR: [email or web address] PHYSICIAN: REFERRING PHYSICIAN: MARKEL DAVIS MD DATE OF SERVICE: 08/30/19 Discharge Plan Patient Name: EDUIN MACHUCA Facility: [facility]:[place] : 1980 Planned Disposition: Home Anticipated Discharge Date: Discharge Date: 08/30/2019 Expected LOS: Initial Reviewer: [email or web address] Initial Review Date: 08/30/2019 Generated: 08/30/19 7:44 pm Comments DCP- Discharge Planning Updated by [email or web address]: Mily Wilson on 08/30/19 5:[address] Patient Name: EDUIN MACHUCA Admission Status: Elective Accout number: [id number] Admission Date: 08-28-2019 : 1980 Admission Diagnosis: Attending: MARKEL DAVIS Current LOS: 2 Anticipated DC Date: Planned Disposition: Home Primary Insurance: MEDICAID [place] PENDING Discharge Planning Comments: CM met with patient at bedside after explaining CM role and obtaining verbal consent. Patient lives at home where he is independent with his care and plans to return there upon discharge. Patient feels this would be a safe discharge. CM discussed availability / needs of home health and medical equipment. Patient denies any discharge needs at this time. Patient states he will have his family drive him home upon discharge. Patient has Medicaid pending. CM spoke with [email or web address] and they stated an application was completed. CM spoke to patient in regards to patient and cost of medication Xarelto. CM told patient that medication is hundreds of dollars for a month supply. Patient stated I will get it because I'm not going to take Coumadin and have to be monitored so closely. CM printed the patient assistance program sheet with website and told him to get online and apply for assistance. CM also printed patient a discount coupon [facility] Rx for [facility] $479.00 for [facility] supply. Patient states that his dad will pay for medication if he doesn't qualify for assistance program. Patient states my Medicaid should be in affect before I need my next script. CM will continue to follow and assist as needed with discharge planning / needs. Enrollment Consultant: Mily Wilson DCPIA - Discharge Planning Initial Assessment Updated by [email or web address]: Mily Wilson on 08/30/19 6:31 pm * Is the patient Alert and Oriented? Yes * PCP SUSAN * [facility] * Preadmission Environment Home with Family * ADLs Independent * Equipment None * List name and contact numbers for known caregivers / representatives who currently or will assist patient after discharge: DAVID Rangel MOTHER - [phone] * Verbal permission to speak to the caregivers and representatives has been obtained from the patient. N/A * Community resources currently utilized None * Additional services required to return to the preadmission environment? No * Can the patient safely return to the preadmission environment? Yes * Has this patient been hospitalized within the prior 30 days at any hospital? No Last DP export: 08/30/19 5:38 p Patient Name: EDUIN MACHUCA Page 85003 at 1844 All edits/amendments must be made on the electronic document DICTATION DATE: 08/30/191843 TELESALES ADVISOR: MAO 08/30/191843 RPT#: [id number] [place] DATE:08/30/19 STATUS: DIS IN [facility] [address] [place] [address] END OF REPORT
--- NOTE | 2019-08-30 19:04 | MORECARE ---
CASE MANAGEMENT DISCHARGE SUMMARY PATIENT: EDUIN MACHUCA UNIT: [id number] ADM DATE: 08/28/19 AGE: 39 : [birth year] SEX: M ROOM/BED: D.2205 AUTHOR: ZULEYMADOC PHYSICIAN: REFERRING PHYSICIAN: MARKEL DAVIS MD DATE OF SERVICE: 08/30/19 Discharge Plan Patient Name: EDUIN MACHUCA Facility: [facility]:[place] : 1980 Planned Disposition: Home Anticipated Discharge Date: Discharge Date: 08/30/2019 Expected LOS: Initial Reviewer: [email or web address] Initial Review Date: 08/30/2019 Generated: 08/30/19 8:03 pm Comments DCP- Discharge Planning Updated by [email or web address]: Mily Wilson on 08/30/19 5:[address] Patient Name: EDUIN MACHUCA Admission Status: Elective Accout number: [id number] Admission Date: 08-28-2019 : 1980 Admission Diagnosis: Attending: MARKEL DAVIS Current LOS: 2 Anticipated DC Date: Planned Disposition: Home Primary Insurance: MEDICAID [place] PENDING Discharge Planning Comments: CM met with patient at bedside after explaining CM role and obtaining verbal consent. Patient lives at home where he is independent with his care and plans to return there upon discharge. Patient feels this would be a safe discharge. CM discussed availability / needs of home health and medical equipment. Patient denies any discharge needs at this time. Patient states he will have his family drive him home upon discharge. Patient has Medicaid pending. CM spoke with [employer] and they stated an application was completed. CM spoke to patient in regards to patient and cost of medication Xarelto. CM told patient that medication is hundreds of dollars for a month supply. Patient stated I will get it because I'm not going to take Coumadin and have to be monitored so closely. CM printed the patient assistance program sheet with website and told him to get online and apply for assistance. CM also printed patient a discount coupon [facility] good Rx for [facility] $479.00 for month supply. Patient states that his dad will pay for medication if he doesn't qualify for assistance program. Patient states my Medicaid should be in affect before I need my next script. CM will continue to follow and assist as needed with discharge planning / needs. Documentation Lead: Mily Wilson DCPIA - Discharge Planning Initial Assessment Updated by [email or web address]: Mily Wilson on 08/30/19 6:31 pm * Is the patient Alert and Oriented? Yes * PCP [facility] * [facility] * Preadmission Environment Home with Family * ADLs Independent * Equipment None * List name and contact numbers for known caregivers / representatives who currently or will assist patient after discharge: DAVID Rangel MOTHER - [phone] * Verbal permission to speak to the caregivers and representatives has been obtained from the patient. N/A * Community resources currently utilized None * Additional services required to return to the preadmission environment? No * Can the patient safely return to the preadmission environment? Yes * Has this patient been hospitalized within the prior 30 days at any hospital? No Last DP export: 08/30/19 5:44 p Patient Name: EDUIN MACHUCA Page 60411 at 1904 All edits/amendments must be made on the electronic document DICTATION DATE: 08/30/191902 CITY SURVEYOR: MAO 08/30/191902 RPT#: [id number] [place] DATE:08/30/19 STATUS: DIS IN [facility] [address] [place] [address] END OF REPORT
--- NOTE | 2019-09-07 12:27 | CN ---
PATIENT NAME:EDUIN MACHUCA MEDICAL RECORD: [id number] : 80 LOCATION:D.MS [place]2205 ADMIT DATE: 08/28/19 ACCOUNT: [id number] CONSULTING PHYSICIAN: BRENT SZYMANSKI MD REFERRING PHYSICIAN: MARKEL DAVIS MD DATE OF CONSULTATION: 08/28/2019 HISTORY OF PRESENT ILLNESS: Mr. Machuca is a 39-year-old male. He came in with right arm swelling. He had a CT of the neck, which showed some fluid in the retropharyngeal base that is apparently why I was called to see him. However, on talking to him and reviewing his history, he has a history of colon cancer, currently no evidence of disease, but he has got 1 more chemotherapy treatment to do. He has a right subclavian port and on his CT, he does have some retropharyngeal fluid. He has got some fluid around some of the paraspinal musculature in the neck. He has got edema in the right arm. He has got the IJ port and the right IJ has clotted off completely. He has no real complaints about his throat. No sore throat. He has not had any fever, chills or systemic symptoms and he does not have an elevated white count. PHYSICAL EXAMINATION: EYES: Normal. NOSE: No mass, polyps, or drainage. ORAL CAVITY AND OROPHARYNX: Really normal. No erythema, no trismus. NECK: He has got just some swelling, but no tenderness or erythema on the right upper neck. The port is palpable in the upper chest, nontender there. CARDIOVASCULAR: The right arm is swollen. 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 I talked to Dr. Collins, general surgery, about the port and talked to interventional radiology and Dr. Davis. We are going to start him on a heparin drip and set him up for thrombectomy with IR in the morning. I do not see any evidence of an infection or abscess, so I do not think there is anything further for me to do there. TRANSINT:[id number] Voice Confirmation ID: [id number] DOCUMENT ID: [id number] BRENT SZYMANSKI MD at 1227 CC: [id number] DICTATION DATE: 08/28/19 0564 PART TIME: 08/29/19 0246 DIS IN 08/30/19 [facility] [address] [facility] [place] [address]
== END 2019-08-30 13:22 | disposition home or self-care (01) | DRG 253 ==
LOC: D.CT 12:55 → D.MS 15:29
PROVIDERS: Radiology Diagnostic Radiology; ADMIT Legal Medicine; ATTEND Legal Medicine
PROC: 05C73ZZ Extirpation of Matter from Right Axillary Vein, Percutaneous Approach (ICD-10-PCS; 2019-08-29)
PROC: 05733ZZ Dilation of Right Innominate Vein, Percutaneous Approach (ICD-10-PCS; 2019-08-29)
PROC: 05753ZZ Dilation of Right Subclavian Vein, Percutaneous Approach (ICD-10-PCS; 2019-08-29)
PROC: 05CY3ZZ Extirpation of Matter from Upper Vein, Percutaneous Approach (ICD-10-PCS; principal; 2019-08-29 11:00)
DX: I82.C11 Acute embolism and thrombosis of right internal jugular vein (principal); C18.9 Malignant neoplasm of colon, unspecified; D64.9 Anemia, unspecified; R60.0 Localized edema

== ENCOUNTER 2020-05-02 16:15 | Inpatient (IN) | payer MEDICAID ==
[~2020-05-02] VITALS: Ht 182.9 cm; Wt 93.0 kg
[~2020-05-02 16:15] MED LIST changes: +XARELTO20 MG PO
[2020-05-02 17:50] LABS: BASOPHILS 0.4 % (0-2); EOSINOPHILS 0.9 % (0-7); HEMATOCRIT 40.1 % (42.0-54.0); HEMOGLOBIN 12.4 g/dL (13.5-17.5); IMMATURE GRANULOCYTES 0.2 % (0-5); LYMPHOCYTES 23.4 % (15-50); MCH 23.8 pg (26.0-34.0); MCHC 30.9 g/dL (31.0-37.0); MEAN PLATELET VOLUME 9.6 fL (7.4-10.4); NEUTROPHILS 64.1 % (40-80); RBC 5.21 10x6/uL (4.20-6.10); RDW 16.1 % (11.5-14.5)
[2020-05-02 17:57] LABS: PLATELET COUNT 298 10x3/uL (130-400)
[2020-05-02 18:17] LABS: ALBUMIN 3.5 g/dL (3.4-5.0); ANION GAP 11.2 mmol/L (8-16); BILIRUBIN - TOTAL 0.5 mg/dL (0.2-1.3); CALCIUM 8.7 mg/dL (8.5-10.1); CARBON DIOXIDE 26.7 mmol/L (21.0-32.0); CREATININE - SERUM 1.4 mg/dL (0.6-1.3); POTASSIUM - SERUM 3.9 mmol/L (3.5-5.1); PROTEIN - SERUM 7.2 g/dL (6.4-8.2)
--- NOTE | 2020-05-02 18:45 | NUR ---
PATIENT TO GET CT
[2020-05-02 19:37] VITALS: BP 145/94; BMI 27.8
--- NOTE | 2020-05-02 19:41 | NUR ---
patient in room eatting. alert and orented able to voice needs and wants to staff. up at gabrielle. no needs at this time water and call light in reach.
[2020-05-02 20:00] VITALS: BP 143/83
[2020-05-03] VITALS: BP 114/67
[2020-05-03 04:00] VITALS: BP 112/67
[2020-05-03 06:29] LABS: BASOPHILS 0.4 % (0-2); EOSINOPHILS 1.6 % (0-7); HEMATOCRIT 39.9 % (42.0-54.0); HEMOGLOBIN 12.3 g/dL (13.5-17.5); IMMATURE GRANULOCYTES 0.3 % (0-5); LYMPHOCYTES 25.8 % (15-50); MCH 23.7 pg (26.0-34.0); MCHC 30.8 g/dL (31.0-37.0); MCV 76.9 fL (80.0-100.0); MEAN PLATELET VOLUME 10.1 fL (7.4-10.4); MONOCYTES 13.1 % (2-11); NEUTROPHILS 58.8 % (40-80); PLATELET COUNT 328 10x3/uL (130-400); RBC 5.19 10x6/uL (4.20-6.10); RDW 16.3 % (11.5-14.5); WBC 6.8 10x3/uL (4.8-10.8)
[2020-05-03 06:55] LABS: ALBUMIN 3.1 g/dL (3.4-5.0); ANION GAP 13.6 mmol/L (8-16); BILIRUBIN - TOTAL 0.34 mg/dL (0.2-1.3); CALCIUM 8.2 mg/dL (8.5-10.1); CARBON DIOXIDE 26.8 mmol/L (21.0-32.0); CREATININE - SERUM 1.3 mg/dL (0.6-1.3); POTASSIUM - SERUM 4.4 mmol/L (3.5-5.1); PROTEIN - SERUM 6.3 g/dL (6.4-8.2)
--- NOTE | 2020-05-03 08:00 | NUR ---
PATIENT IN BED WITH IV INTACT. NO COMPLAINTS OR SIGNS OF DISTRESS. GOING TO GET UP AND TAKE A SHOWER. DOES NOT LIKE CLEAR LIQUIDS. DRINKING ONLY WATER. CALLL IGHT WITHIN REACH.
[2020-05-03 08:56] VITALS: BP 145/78
--- NOTE | 2020-05-03 10:45 | NUR ---
PATIENT IN BED WITH IV INTACT. FAMILY AT BEDSIDE. CALL LIGHT WITHIN REACH.
[2020-05-03 12:20] VITALS: BP 135/85
[2020-05-03 12:21] VITALS: BMI 27.8
[2020-05-03 18:08] VITALS: BP 131/75
--- NOTE | 2020-05-03 18:45 | NUR ---
PATIENT IN BED WITH IV INTACT. NO COMPLAINTS OR SIGNS OF DISTRESS. DRINKING GOLYTELY SLOWLY. CALL LIGHT WITHIN REACH.
--- NOTE | 2020-05-03 19:54 | NUR ---
ALERT AND ORENTED X4. UP AT TAMIKO, ABLE TO VOICE NEEDS AND WANTS TO STAFF. REMAINS ON ROOM AIR IV TO LEFT FOREARM WITH NO REDNESS OR PAIN AT THIS TIME. NO NEEDS AT THIS TIME.
[2020-05-03 20:00] VITALS: BP 126/80
[2020-05-04] VITALS: BP 128/80
[2020-05-04 04:00] VITALS: BP 119/69
[2020-05-04 06:53] LABS: BASOPHILS 0.9 % (0-2); EOSINOPHILS 1.7 % (0-7); HEMATOCRIT 40.2 % (42.0-54.0); HEMOGLOBIN 12.6 g/dL (13.5-17.5); IMMATURE GRANULOCYTES 0.2 % (0-5); LYMPHOCYTES 25.7 % (15-50); MCH 23.9 pg (26.0-34.0); MCHC 31.3 g/dL (31.0-37.0); MCV 76.3 fL (80.0-100.0); MEAN PLATELET VOLUME 10.1 fL (7.4-10.4); MONOCYTES 12.4 % (2-11); NEUTROPHILS 59.1 % (40-80); PLATELET COUNT 355 10x3/uL (130-400); RBC 5.27 10x6/uL (4.20-6.10); RDW 16.1 % (11.5-14.5); WBC 6.5 10x3/uL (4.8-10.8)
[2020-05-04 07:28] LABS: APTT 30.1 SECONDS (22.8-39.4); INR 1.16 (0.85-1.17); PROTIME 14.7 SECONDS (11.6-15.0)
[2020-05-04 07:47] LABS: ALBUMIN 3.1 g/dL (3.4-5.0); ANION GAP 13.6 mmol/L (8-16); BILIRUBIN - TOTAL 0.54 mg/dL (0.2-1.3); CALCIUM 8.6 mg/dL (8.5-10.1); CARBON DIOXIDE 26.2 mmol/L (21.0-32.0); CREATININE - SERUM 1.2 mg/dL (0.6-1.3); POTASSIUM - SERUM 3.8 mmol/L (3.5-5.1); PROTEIN - SERUM 6.8 g/dL (6.4-8.2)
--- NOTE | 2020-05-04 08:19 | NUR ---
ASSESSMENT PER FLOW SHEET. CONSENT FOR PROCEDURE ORDERED. NPO SINCE MN. LEFT UNIT FOR IR.
[2020-05-04 09:37] VITALS: BP 118/89
--- NOTE | 2020-05-04 09:40 | NUR ---
BACK FROM IR. PATIENT IS WITHOUT DISTRESS.
[2020-05-04 10:06] LABS: PROTEIN - BODY FLUID 4.9 G/DL
[2020-05-04 10:39] LABS: EOS BF 6 %; MACROPHAGES BF 29 %; NEUT - BF 5 %
--- NOTE | 2020-05-04 14:41 | NUR ---
TO GI LAB VIA BED
--- NOTE | 2020-05-04 16:50 | NUR ---
BACK TO ROOM FROM GI LAB. PATIENT WENT STRAIGHT TO SHOWER AND DECLINES VITAL SIGNS
--- NOTE | 2020-05-04 17:15 | NUR ---
STILL IN SHOWER
[2020-05-04 20:00] VITALS: BP 120/61
--- NOTE | 2020-05-05 01:45 | NUR ---
ALERT AND ORENTED X4. ABLE TO VOICE NNEDS AND WANTS TO STAFF. UP AT TAMIKO. IV TO LEFT AC NO REDNESS, NO PAIN REPORTED, NO FLUIDS RUNNING. RESTING ON RIGHT SIDE RESPRATIONS EVEN AND UNLABORED CALL LIGHT AND WATER IN REACH.
[2020-05-05 04:00] VITALS: BP 118/80
[2020-05-05 07:22] LABS: BASOPHILS 0.3 % (0-2); EOSINOPHILS 1.5 % (0-7); HEMATOCRIT 39.5 % (42.0-54.0); HEMOGLOBIN 12.4 g/dL (13.5-17.5); IMMATURE GRANULOCYTES 0.3 % (0-5); LYMPHOCYTES 18.8 % (15-50); MCH 23.8 pg (26.0-34.0); MCHC 31.4 g/dL (31.0-37.0); MEAN PLATELET VOLUME 10.1 fL (7.4-10.4); MONOCYTES 10.7 % (2-11); NEUTROPHILS 68.4 % (40-80); PLATELET COUNT 366 10x3/uL (130-400); RDW 15.9 % (11.5-14.5)
[2020-05-05 08:10] LABS: ANION GAP 12.5 mmol/L (8-16); BILIRUBIN - TOTAL 0.46 mg/dL (0.2-1.3); CALCIUM 8.8 mg/dL (8.5-10.1); CARBON DIOXIDE 24.4 mmol/L (21.0-32.0); CREATININE - SERUM 1.2 mg/dL (0.6-1.3); POTASSIUM - SERUM 3.9 mmol/L (3.5-5.1); PROTEIN - SERUM 6.9 g/dL (6.4-8.2)
[2020-05-05 08:33] VITALS: BP 129/69
--- NOTE | 2020-05-05 09:45 | NUR ---
ASSESSMENT PER FLOW SHEET. PATIENT IS WITHOUT DISTRESS.STATES HE FEELS BETTER TODAY.WANTS TO DC HOME IF NO PLANS FOR POSS SURG AT THIS TIME.CALL LIGHT IN REACH
--- NOTE | 2020-05-05 11:36 | NUR ---
OUT IN HALLS. STATES HE WANTS TO GO HOME. PAGE TO [facility] AND JOSE G WITH DR UGALDE.JO[facility] G WILL SEE HIM AFTER CLINIC.
--- NOTE | 2020-05-05 11:51 | NUR ---
CALL BACK FROM [facility]. ORDERS RECIEVED AND INITIATED.
[2020-05-05 12:33] VITALS: BP 123/66
--- NOTE | 2020-05-05 15:11 | NUR ---
SLEEPING,WITHOUT NEEDS.FAMILY IN ROOM.
--- NOTE | 2020-05-05 15:58 | MORECARE ---
CASE MANAGEMENT DISCHARGE SUMMARY PATIENT: EDUIN MACHUCA UNIT: [id number] ADM DATE: 05/02/20 AGE: 39 : [birth year] SEX: M ROOM/BED: D.2231 AUTHOR: YUE AMOR PHYSICIAN: REFERRING PHYSICIAN: MARKEL DAVIS MD DATE OF SERVICE: 05/05/20 Discharge Plan Patient Name: EDUIN MACHUCA Facility: [facility]:[place] : 1980 Planned Disposition: Anticipated Discharge Date: Discharge Date: Expected LOS: Initial Reviewer: [email or web address] Initial Review Date: 05/02/2020 Generated: 05/05/20 4:57 pm Comments DCP- Discharge Planning Updated by [id number]: Yary Mccoy on 05/05/20 2:[address] Patient Name: EDUIN MACHUCA Admission Status: Elective Accout number: [id number] Admission Date: 05-02-2020 : 1980 Admission Diagnosis:GASTROINTESTINAL HEMORRHAGE, UNSPECIFIED Attending: MARKEL DAVIS Current LOS: 3 Anticipated DC Date: Planned Disposition: Primary Insurance: MEDICAID [place] Discharge Planning Comments: CM met with patient at bedside after explaining CM role and obtaining verbal consent. CM discussed availability / needs of home health, REHAB and medical equipment. PATIENT DENIES ANY DISCHARGE NEEDS AT THIS TIME. [employer] Supervisor: Yary Mccoy DCPIA - Discharge Planning Initial Assessment Updated by [email or web address]: Yary Mccoy on 05/05/20 3:53 pm * Is the patient Alert and Oriented? Yes * PCP [facility] * [facility] * Preadmission Environment Home Alone * ADLs Independent * Community resources currently utilized None * Additional services required to return to the preadmission environment? No * Can the patient safely return to the preadmission environment? Yes * Has this patient been hospitalized within the prior 30 days at any hospital? No Patient Name: EDUIN MACHUCA Page 82015 at 0539 All edits/amendments must be made on the electronic document DICTATION DATE: 05/05/20 3177 COOK CANDY: MAO 05/05/20 7478 RPT#: [id number] [place] DATE: STATUS: ADM IN [facility] [address] [place] [address] END OF REPORT
[2020-05-05 18:03] VITALS: Ht 182.9 cm; Wt 93.0 kg
--- NOTE | 2020-05-05 19:06 | NUR ---
LEFT UNIT FOR DISCHARGE HOME
--- NOTE | 2020-05-06 13:48 | MORECARE ---
CASE MANAGEMENT DISCHARGE SUMMARY PATIENT: EDUIN MACHUCA UNIT: [id number] ADM DATE: 05/02/20 AGE: 39 : [birth year] SEX: M ROOM/BED: D.2231 AUTHOR: YUE AMOR PHYSICIAN: REFERRING PHYSICIAN: MARKEL DAVIS MD DATE OF SERVICE: 05/06/20 Discharge Plan Patient Name: EDUIN MACHUCA Facility: [facility]:[place] : 1980 Planned Disposition: Anticipated Discharge Date: Discharge Date: 05/05/2020 Expected LOS: Initial Reviewer: [email or web address] Initial Review Date: 05/02/2020 Generated: 05/06/20 2:48 pm Comments DCP- Discharge Planning Updated by [email or web address]: Yary Mccoy on 05/05/20 2:[address] Patient Name: EDUIN MACHUCA Admission Status: Elective Accout number: [id number] Admission Date: 05-02-2020 : 1980 Admission Diagnosis:GASTROINTESTINAL HEMORRHAGE, UNSPECIFIED Attending: MARKEL DAVIS Current LOS: 3 Anticipated DC Date: Planned Disposition: Primary Insurance: MEDICAID [place] Discharge Planning Comments: CM met with patient at bedside after explaining CM role and obtaining verbal consent. CM discussed availability / needs of home health, REHAB and medical equipment. PATIENT DENIES ANY DISCHARGE NEEDS AT THIS TIME. Professor Of Environmental Studies: Yary Mccoy DCPIA - Discharge Planning Initial Assessment Updated by [id number]: Yary Mccoy on 05/05/20 3:53 pm * Is the patient Alert and Oriented? Yes * PCP [facility] * [facility] * Preadmission Environment Home Alone * ADLs Independent * Community resources currently utilized None * Additional services required to return to the preadmission environment? No * Can the patient safely return to the preadmission environment? Yes * Has this patient been hospitalized within the prior 30 days at any hospital? No Last DP export: 05/05/20 2:58 p Patient Name: EDUIN MACHUCA Page 89448 at 1348 All edits/amendments must be made on the electronic document DICTATION DATE: 05/06/201347 SYSTEMS DEVELOPMENT MANAGER: DM 05/06/20 1348 RPT#: [id number] DC DATE:05/05/20 STATUS: DIS IN [facility] [address] [place] [address] END OF REPORT
== END 2020-05-05 19:08 | disposition home or self-care (01) | DRG 375 ==
LOC: D.MS 16:15
PROVIDERS: Emergency Medicine; Internal Medicine Gastroenterology; Radiology Diagnostic Radiology; Radiology Vascular & Interventional Radiology; ADMIT Legal Medicine; ATTEND Legal Medicine
PROC: 0DBN8ZX Excision of Sigmoid Colon, Via Natural or Artificial Opening Endoscopic, Diagnostic (ICD-10-PCS; 2020-05-04)
PROC: 0W9G3ZZ Drainage of Peritoneal Cavity, Percutaneous Approach (ICD-10-PCS; principal; 2020-05-04 08:45)
PROC: 0DBU3ZX Excision of Omentum, Percutaneous Approach, Diagnostic (ICD-10-PCS; 2020-05-04 08:45)
DX: C18.9 Malignant neoplasm of colon, unspecified (principal); K92.2 Gastrointestinal hemorrhage, unspecified; I82.C19 Acute embolism and thrombosis of unspecified internal jugular vein; D64.9 Anemia, unspecified; R53.83 Other fatigue; F41.9 Anxiety disorder, unspecified; Z85.038 Personal history of other malignant neoplasm of large intestine

== ENCOUNTER 2020-11-03 10:58 | Inpatient (IN) | payer MEDICAID ==
[~2020-11-03] VITALS: Ht 182.9 cm; Wt 69.4 kg
[~2020-11-03 10:58] MED LIST changes: +CHEMO MED; +ONDANSETRON ODT8 MG PO
[2020-11-03] MEDS ORDERED: DILAUDID2 MG PO (11:35)
[2020-11-03] MEDS ORDERED: OXYCODONE HCL5 M1 PO (11:38)
[2020-11-03 11:48] VITALS: BP 140/105; BMI 20.8
--- NOTE | 2020-11-03 11:55 | NUR ---
ASSESSMENT PER FLOW SHEET. PATIENT IS HAVING NAUSEA AND VOMITING. RIGHT CHEST PORT NOTED. PATIENT STATES ONLY USED FOR CHEMO. RIGHT FOREARM IV SL. INSTRUCTED IS AND CALL LIGHT USE. PATIENT DECLINES SCD'S,EDUCATION PROVIDED.
--- NOTE | 2020-11-03 12:06 | NUR ---
GAVE MEDICAL IMAGING DISC TO IMPORT TO PT CHART PER DR RESENDIZ REQUEST. GAVE TO TOLU AT TOWER DRAGLINE OPERATOR. CONTINUE WITH PLAN OF CARE
--- NOTE | 2020-11-03 12:17 | NUR ---
CALLED DR DAVIS'S OFFICE, LEFT MESSAGE FOR RETURN CALL IN REGARDS TO PT ADMIT
--- NOTE | 2020-11-03 12:41 | NUR ---
SPOKE TO DR DAVIS PER DR DAVIS PATIENT LEFT HIS CARE. SPOKE TO OSMANI AND DR DICKINSON AND [facility] WILL ACCEPT PATIENT
--- NOTE | 2020-11-03 14:17 | NUR ---
PT REPORTS PAIN TO LEFT SIDE OF ABDOMEN. PRN PAIN MEDICATION ADMINISTERED PER ORDER. INCENTIVE SPIROEMTER AT BEDSIDE AND ENCOURAGED. PT VERBALIZES UNDERSTANDING. BED IS IN THE LOWEST POSITION. CALL LIGHT AND BEDSIDE TABLE ARE WITHIN REACH. FAMILY MEMBER AT BEDSIDE. PT DENIES FURTHER NEEDS. WILL CONT TO MONITOR.
[2020-11-03 15:14] LABS: BASOPHILS 0.4 % (0-2); EOSINOPHILS 3.5 % (0-7); HEMATOCRIT 33.5 % (42.0-54.0); HEMOGLOBIN 11.2 g/dL (13.5-17.5); IMMATURE GRANULOCYTES 0.4 % (0-5); LYMPHOCYTE ABS# 1.05 10x3/uL (1.32-3.57); LYMPHOCYTES 21.8 % (15-50); MCH 28.6 pg (26.0-34.0); MCHC 33.4 g/dL (31.0-37.0); MCV 85.5 fL (80.0-100.0); MONOCYTES 11.6 % (2-11); NEUTROPHILS 62.3 % (40-80); RBC 3.92 10x6/uL (4.20-6.10); RDW 14.1 % (11.5-14.5); WBC 4.8 10x3/uL (4.8-10.8)
[2020-11-03 15:18] LABS: PLATELET COUNT 268 10x3/uL (130-400)
--- NOTE | 2020-11-03 15:19 | NUR ---
PT REQUESTS FOR MOTHER ANA CANNON TO SIGN ALL CONSENTS FOR PROCEDURE WITH DR RESENDIZ. ALL CONSENTS SIGNED BY PT MOTHER AT REQUEST. ALL SIGNED CONSENTS PLACED IN PT CHART.
[2020-11-03 15:23] LABS: INR 1.29 (0.85-1.17); PROTIME 14.9 SECONDS (11.6-15.0)
[2020-11-03 15:41] LABS: ALBUMIN 3.1 g/dL (3.4-5.0); ALKALINE PHOSPHATASE 156 U/L (30-120); ALT (SGPT) 17 U/L (10-68); AMYLASE - SERUM 75 U/L (25-115); BILIRUBIN - TOTAL 0.33 mg/dL (0.2-1.3); CALC OSMOLALITY 267 mosm/kg (275-300); CARBON DIOXIDE 28.9 mmol/L (21.0-32.0); CHLORIDE - SERUM 99 mmol/L (98-107); CREATININE - SERUM 0.9 mg/dL (0.6-1.3); GLUCOSE 116 mg/dL (74-106); LIPASE 289 U/L (73-393); MAGNESIUM - SERUM 2.2 mg/dL (1.8-2.4); POTASSIUM - SERUM 3.8 mmol/L (3.5-5.1); PROTEIN - SERUM 7.2 g/dL (6.4-8.2); SODIUM 134 mmol/L (136-145); THYROID STIMULATING HORMONE 4.58 uIU/mL (0.36-3.74); UREA NITROGEN 10 mg/dL (7-18); eGFR NON AFRICAN AMERICAN > 90 mL/min (90-120)
--- NOTE | 2020-11-03 15:50 | NUR ---
PT TRANSPORTED OFF FLOOR VIA BED FOR GI PROCEDURE. PT ESCORTED BY GI LAB STAFF. PT DENIES FURTHER QUESTIONS/CONCERNS/NEEDS AT THIS TIME.
--- NOTE | 2020-11-03 17:01 | NUR ---
1648 FLOROSCOPY TIME DURING THE PROCEDURE WAS 1 MINUTE AND 45 SECONDS.
--- NOTE | 2020-11-03 17:15 | NUR ---
PT RETURNS TO ROOM VIA BED AAO X 4 AND REQUESTS TO GO TO FOR BM. PT MOTHER AT BEDSIDE. WILL OBTAIN POST OP VITALS WHEN PT NOTIFIES NURSE WHEN FINISHED IN BM.
[2020-11-03 17:27] VITALS: BP 153/96
--- NOTE | 2020-11-03 17:57 | NUR ---
PT WITH MULTIPLE TRIPS TO FOR BM. PT DENIES PRESENCE OF PAIN WITH DEFECATION. PT DENIES BLOOD STOOL. PT REQUESTS TO TAKE A SHOWER AT THIS TIME. PT ASSISTED WITH IV ACCESS FOR SHOWER AND PT DENIES FURTHER NEEDS. PT MOTHER AT BEDSIDE. WILL CONT TO MONITOR.
--- NOTE | 2020-11-03 19:30 | NUR ---
ALERT SITTING UP IN BED, MEDICATED FOR PAIN ORDERED, REPORTS BM X 1 SINCE SURGERY TODAY, SEE SHIFT ASSESSEMNT CALL LIGHT IN REACH
[2020-11-03 20:00] VITALS: BP 144/95
[2020-11-04] VITALS: BP 135/90
[2020-11-04 04:00] VITALS: BP 132/95
--- NOTE | 2020-11-04 06:18 | NUR ---
PT REPORTS HAVING AT LEAST 9 WATERY STOOLS LAST NIGHT, REPORTS SOME BLOOD IN ONE EARLY LAST NIGHT AND AGAIN EARLY THIS AM, OTHERWISE JUST WATERY
[2020-11-04 06:44] LABS: ALBUMIN 2.7 g/dL (3.4-5.0); ALKALINE PHOSPHATASE 130 U/L (30-120); ALT (SGPT) 15 U/L (10-68); BILIRUBIN - TOTAL 0.26 mg/dL (0.2-1.3); CALCIUM 8.4 mg/dL (8.5-10.1); CARBON DIOXIDE 27.6 mmol/L (21.0-32.0); CHLORIDE - SERUM 102 mmol/L (98-107); CREATININE - SERUM 0.9 mg/dL (0.6-1.3); GLUCOSE 113 mg/dL (74-106); POTASSIUM - SERUM 3.5 mmol/L (3.5-5.1); PROTEIN - SERUM 5.9 g/dL (6.4-8.2); SODIUM 139 mmol/L (136-145); eGFR NON AFRICAN AMERICAN > 90 mL/min (90-120)
[2020-11-04 06:48] LABS: BASOPHILS 0.3 % (0-2); EOSINOPHILS 4.7 % (0-7); HEMATOCRIT 30.3 % (42.0-54.0); IMMATURE GRANULOCYTES 0.3 % (0-5); LYMPHOCYTE ABS# 1.09 10x3/uL (1.32-3.57); LYMPHOCYTES 28.5 % (15-50); MCH 28.2 pg (26.0-34.0); MCV 85.6 fL (80.0-100.0); MEAN PLATELET VOLUME 9.2 fL (7.4-10.4); MONOCYTES 14.4 % (2-11); NEUTROPHIL ABS# 1.99 10x3/uL (1.78-5.38); NEUTROPHILS 51.8 % (40-80); PLATELET COUNT 276 10x3/uL (130-400); RBC 3.54 10x6/uL (4.20-6.10); RDW 14.1 % (11.5-14.5); WBC 3.8 10x3/uL (4.8-10.8)
[2020-11-04 06:50] LABS: CALC OSMOLALITY 276 mosm/kg (275-300); UREA NITROGEN 7 mg/dL (7-18)
--- NOTE | 2020-11-04 08:50 | NUR ---
PT RESTING IN BED. REQUESTING PAIN MEDICATION. EDUCATED PT ON TIMING FOR PAIN MEDICATION, INSTRUCTING THAT HE HAD LAST RECEIVED MORPHINE AND ZOFRAN @ 0550 AND WAS UNABLE TO ADMINISTER ANY AT THIS TIME I INSTRUCTED THAT PAIN MED WAS ORDERED FOR EVERY 4 HOURS. PT VOICES "I DON'T UNDERSTAND WHY I CANT HAVE IT SOONER IF I AM HURTING." PT REQUESTED CYBER OPERATOR FOR BETTER PAIN CONTROL. INFORMED PT THAT STAFF WOULD CONTACT MD REGARDING WISHES.
[2020-11-04 09:33] VITALS: BP 139/96
[2020-11-04 12:58] LABS: BILIRUBIN NEGATIVE (NEGATIVE); KETONE NEGATIVE (NEGATIVE); NITRITE NEGATIVE (NEGATIVE); UROBILINOGEN NORMAL mg/dL (< 2)
[2020-11-04 13:40] VITALS: BP 130/72
[2020-11-04 15:37] VITALS: Ht 182.9 cm; Wt 69.4 kg
[2020-11-04 17:47] VITALS: BP 141/88
--- NOTE | 2020-11-07 14:29 | OP ---
PATIENT NAME: EDUIN MACHUCA MEDICAL RECORD: [id number] :80 LOCATION:D. D.2216 ADMISSION DATE:11/03/20 SURGEON: KAITLYNN UGALDE MD DATE OF OPERATION: 11/03/2020 [place] Worker's note for 11/03/2020. This is an billing and accounting staff assistant's note. I assisted Dr. Tesfaye Israel with deployment of a stent. My participation in the operation was minor. It has consisted only of loading the stent deployment device onto a 0.035 wire and then deploying the stent under his guidance. TRANSINT:[id number] Voice Confirmation ID: [id number] DOCUMENT ID: [id number] KAITLYNN UGALDE MD at 1429 CC: [id number] DICTATION DATE: 11/04/201707 TILE LAYER: 11/04/20 2230 DIS IN 11/04/20 [facility] [address] [place] [address]
== END 2020-11-04 19:02 | disposition home or self-care (01) | DRG 845 ==
LOC: D.MS 10:58
PROVIDERS: Family Medicine; Internal Medicine Gastroenterology; ADMIT Family Medicine; ATTEND Family Medicine
PROC: 0D7E8DZ Dilation of Large Intestine with Intraluminal Device, Via Natural or Artificial Opening Endoscopic (ICD-10-PCS; principal; 2020-11-03 16:04)
DX: C80.0 Disseminated malignant neoplasm, unspecified (principal); I10 Essential (primary) hypertension; F17.200 Nicotine dependence, unspecified, uncomplicated; F12.90 Cannabis use, unspecified, uncomplicated

== ENCOUNTER 2021-01-10 11:08 | Emergency (ER) | payer MEDICAID ==
[~2021-01-10] VITALS: Ht 182.9 cm; Wt 68.6 kg
[~2021-01-10 11:08] MED LIST changes: +DILAUDID2 MG PO; +OXYCODONE HCL5 M1 PO
[2021-01-10 11:12] VITALS: BP 139/96; Ht 182.9 cm; Wt 68.6 kg
[2021-01-10 11:33] LABS: BASOPHILS 0.8 % (0-2); EOSINOPHILS 1.2 % (0-7); HEMATOCRIT 34.8 % (42.0-54.0); HEMOGLOBIN 11.6 g/dL (13.5-17.5); LYMPHOCYTES 16.1 % (15-50); MCH 27.2 pg (26.0-34.0); MCHC 33.3 g/dL (31.0-37.0); MCV 81.7 fL (80.0-100.0); MEAN PLATELET VOLUME 5.9 fL (7.4-10.4); MONOCYTES 12.3 % (2-11); NEUTROPHILS 69.6 % (40-80); RBC 4.26 10x6/uL (4.20-6.10); RDW 15.3 % (11.5-14.5); WBC 7.4 10x3/uL (4.8-10.8)
[2021-01-10 11:44] LABS: CALC OSMOLALITY 270 mosm/kg (275-300); CALCIUM 9.5 mg/dL (8.5-10.1); CARBON DIOXIDE 31.6 mmol/L (21.0-32.0); CHLORIDE - SERUM 97 mmol/L (98-107); CREATININE - SERUM 0.8 mg/dL (0.6-1.3); GLUCOSE 107 mg/dL (74-106); PLATELET COUNT 518 10x3/uL (130-400); POTASSIUM - SERUM 3.7 mmol/L (3.5-5.1); SODIUM 136 mmol/L (136-145); UREA NITROGEN 9 mg/dL (7-18); eGFR NON AFRICAN AMERICAN > 90 mL/min (90-120)
[2021-01-10 11:51] LABS: ALBUMIN 2.7 g/dL (3.4-5.0); ALKALINE PHOSPHATASE 437 U/L (30-120); ALT (SGPT) 18 U/L (10-68); BILIRUBIN - TOTAL 0.79 mg/dL (0.2-1.3); PROTEIN - SERUM 8.2 g/dL (6.4-8.2)
[2021-01-10] MEDS ORDERED: HYDROCODON-ACE1 EA10 PO (13:10)
== END 2021-01-10 13:36 | disposition home or self-care (01) ==
LOC: D.ER 11:08
PROVIDERS: Student in an Organized Health Care Education/Training Program
DX: R10.9 Unspecified abdominal pain (principal); R11.2 Nausea with vomiting, unspecified